=== PATIENT | female | born 1950 | race Caucasian/White ===

== ENCOUNTER 2021-12-07 02:12 | Inpatient (IN) | payer MEDICARE, MEDICAID ==
[~2021-12-07] VITALS: Ht 154.9 cm; Wt 64.5 kg
[~2021-12-07 02:12] MED LIST: BENZ1TAB96 PO; CEPH-558 PO; ENOX40SY14 SQ; LAMO100 PO; LEVO100 PO; METO100T14 PO; QUET100T PO; TIZA-330 PO; VENL-68 PO
[2021-12-07] MEDS ORDERED: LEVE500T9 PO (03:44)
[2021-12-07] MEDS ORDERED: VENL-193 PO (03:44)
[2021-12-07] MEDS ORDERED: MIRT-89 PO (03:44)
[2021-12-07] MEDS ORDERED: QUET25TA PO (03:44)
[2021-12-07] MEDS ORDERED: QUET200T PO (03:44)
[2021-12-07 04:26] LABS: BASOPHILS % (AUTO) 0.7 % (0.0-2.0); EOSINOPHILS % (AUTO) 1.3 % (1.0-6.0); HEMATOCRIT 36.3 % (36-46); HEMOGLOBIN 11.7 g/dL (12.0-16.0); LYMPHOCYTES # (AUTO) 1.3 K/uL (1.0-4.8); LYMPHOCYTES % (AUTO) 21.1 % (22.0-44.0); MEAN CORPUSCULAR HEMOGLOBIN 25.6 pg (26.0-34.0); MEAN CORPUSCULAR HGB CONC 32.3 G/dL (31.0-37.0); MEAN CORPUSCULAR VOLUME 79 fL (80-100); MONOCYTES # (AUTO) 0.5 K/uL (0.1-1.0); MONOCYTES % (AUTO) 8.1 % (2.0-9.0); NEUTROPHILS # (AUTO) 4.1 K/uL (1.8-7.7); NEUTROPHILS % (AUTO) 68.8 % (40.0-70.0); PLATELET COUNT (AUTO) 287 K/uL (150-450); RED BLOOD CELL COUNT(AUTO) 4.58 MIL/uL (4.00-5.20); RED CELL DISTRIBUTION WIDTH 15.5 % (11.5-14.5)
[2021-12-07 04:33] LABS: ANION GAP 3 mmol/L (8-16); CARBON DIOXIDE 31 mmol/L (22-29); CHLORIDE 98 mmol/L (98-107); GLUCOSE,RANDOM 97 mg/dL (70-110); POTASSIUM 4.4 mmol/L (3.5-5.1); SODIUM SERUM 132 mmol/L (136-145); UREA NITROGEN, BLOOD 14 mg/dL (7-18)
[2021-12-07 04:34] LABS: GLOMERULAR FILTR. RATE CALC > 60 mL/min (>60)
[2021-12-07 04:48] LABS: ALANINE AMINOTRANSFERASE 16 U/L (12-78); ALBUMIN 3.3 g/dL (3.4-5.0); ALKALINE PHOSPHATASE 118 U/L (46-116); ASPARTATE AMINOTRANSFERASE 19 U/L (15-37); BILIRUBIN,TOTAL 0.3 mg/dL (0.1-1.0); THYROID STIMULATING HORMONE 3.92 uIU/mL (0.36-3.74)
[2021-12-07 05:05] LABS: COVID AG,FIA SOURCE NASAL SWAB
[2021-12-07 05:09] LABS: APPEARANCE,URINE CLEAR (CLEAR); BILIRUBIN,URINE NEGATIVE (NEGATIVE); GLUCOSE, URINE (UA) NEGATIVE (NEGATIVE); KETONES,URINE NEGATIVE (NEGATIVE); LEUKOCYTE ESTERASE ,URINE MODERATE (NEGATIVE); NITRATE,URINE NEGATIVE (NEGATIVE); OCCULT BLOOD,URINE NEGATIVE (NEGATIVE); PROTEIN,URINE NEGATIVE (NEGATIVE); SPECIFIC GRAVITIY, URINE 1.006 (1.003-1.030); UROBILINOGEN,URINE <=1.0 mg/dL (<=1.0)
[2021-12-07 05:13] LABS: AMPHET/METH SCREEN,URINE NEGATIVE (NEGATIVE); BARBITURATE SCREEN, URINE NEGATIVE (NEGATIVE); BENZODIAZEPINES SCREEN,URINE NEGATIVE (NEGATIVE); CANNABINOID SCREEN,URINE NEGATIVE (NEGATIVE); COCAINE SCREEN,URINE NEGATIVE (NEGATIVE); METHADONE SCREEN, URINE NEGATIVE (NEGATIVE); OPIATE SCREEN,URINE NEGATIVE (NEGATIVE)
[2021-12-07 05:14] LABS: PHENCYCLIDINE SCREEN,URINE NEGATIVE (NEGATIVE)
[2021-12-07] MEDS ORDERED: ZOLPIDEM TARTRATE 10 MG TABLET PO PRN (05:15)
[2021-12-07] MEDS ORDERED: HALOPERIDOL 5 MG TABLET PO PRN (05:15)
[2021-12-07] MEDS ORDERED: LORazepam 2 MG TABLET PO PRN (05:15)
[2021-12-07 05:16] LABS: RBC,URINE None Seen /HPF (0-2)
[2021-12-07 05:17] LABS: BACTERIA,URINE None Seen /HPF (None Seen)
[2021-12-07] MEDS ORDERED: FERR325T27 PO (07:52)
[2021-12-07] MEDS ORDERED: CETI5TAB14 PO (07:52)
[2021-12-07] MEDS ORDERED: AMLO-258 PO (07:52)
[2021-12-07] MEDS ORDERED: BENZ1TAB96 PO (07:52)
[2021-12-07] MEDS ORDERED: ACET-2247 PO (07:52)
[2021-12-07] MEDS ORDERED: BISA10SU61 PR (07:52)
[2021-12-07] MEDS ORDERED: LAMO200T10 PO (08:07)
[2021-12-07] MEDS ORDERED: METO50 PO (08:07)
[2021-12-07] MEDS ORDERED: CHOL10002 PO (08:07)
[2021-12-07] MEDS ORDERED: MAGN-169 PO (08:07)
[2021-12-07] MEDS ORDERED: THIA100T80 PO (08:07)
[2021-12-07] MEDS ORDERED: PANT-31 PO (08:07)
[2021-12-07] MEDS ORDERED: LACTULOSE 20 GM/30 ML SOLUTION UDCUP PO PRN (12:00)
[2021-12-07 12:55] VITALS: BP 122/86
[2021-12-07] MEDS: VENLAFAXINE HCL 75 MG ER CAPSULE PO SCH (13:06)
[2021-12-07] MEDS ORDERED: PETROLATUM,WHITE 28 GM JELLY TP PRN (15:15)
[2021-12-07] MEDS ORDERED: CloNIDine HCL 0.1 MG TABLET PO PRN (15:15)
[2021-12-07] MEDS ORDERED: MAG HYDROX/AL HYDROX/SIMETH ES 30 ML SUSPENSION UDCUP PO PRN (15:15)
[2021-12-07] MEDS ORDERED: LOPERAMIDE HCL 2 MG CAPSULE PO PRN (15:15)
[2021-12-07] MEDS ORDERED: IBUPROFEN 400 MG TABLET PO PRN (15:15)
[2021-12-07] MEDS ORDERED: DOCUSATE SODIUM 100 MG CAPSULE PO PRN (15:15)
[2021-12-07] MEDS ORDERED: NICOTINE 14 MG/24 HOUR PATCH TD PRN (15:15)
[2021-12-07] MEDS ORDERED: MAGNESIUM HYDROXIDE SUSPENSION 30 ML UDCUP PO PRN (15:15)
[2021-12-07] MEDS ORDERED: ONDANSETRON HCL 4 MG TABLET PO PRN (15:15)
[2021-12-07] MEDS ORDERED: ACETAMINOPHEN 325 MG TABLET PO PRN (15:15)
[2021-12-07] MEDS ORDERED: GuaiFENesin/D-METHORPHAN [SUGAR-FREE] 200-20MG/10 ML SYRUP UDCUP PO PRN (15:15)
[2021-12-07] MEDS ORDERED: ALBUTEROL SULFATE HFA 90 MCG/PUFF 8 GM INHALER IH PRN (15:15)
[2021-12-07 16:10] VITALS: BP 119/84
[2021-12-07] MEDS: LITHIUM CARBONATE 300 MG ER TABLET PO SCH (17:10)
[2021-12-07] MEDS: LamoTRIgine 100 MG TABLET PO SCH (17:10)
[2021-12-07] MEDS: FAMOTIDINE 20 MG TABLET PO SCH (17:10)
[2021-12-07] MEDS: QUEtiapine FUMARATE 25 MG TABLET PO SCH (17:11)
[2021-12-07] MEDS: METOPROLOL TARTRATE 50 MG TABLET PO SCH (19:26)
[2021-12-07 19:30] VITALS: BP 144/65
[2021-12-07] MEDS: CETIRIZINE HCL 10 MG TABLET PO SCH (20:59)
[2021-12-07] MEDS: MIRTAZAPINE 15 MG TABLET PO SCH (20:59)
[2021-12-07] MEDS: QUEtiapine FUMARATE 200 MG TABLET PO SCH (21:00)
[2021-12-08] MEDS: LEVOTHYROXINE SODIUM 100 MCG TABLET PO SCH (06:39)
[2021-12-08 08:31] VITALS: BP 110/68
[2021-12-08] MEDS: VENLAFAXINE HCL 75 MG ER CAPSULE PO SCH (08:40)
[2021-12-08] MEDS: LITHIUM CARBONATE 300 MG ER TABLET PO SCH ×3 (08:40→18:00)
[2021-12-08] MEDS: METOPROLOL TARTRATE 50 MG TABLET PO SCH ×2 (08:40→17:00)
[2021-12-08] MEDS: QUEtiapine FUMARATE 25 MG TABLET PO SCH ×3 (08:41→18:00)
[2021-12-08] MEDS: FAMOTIDINE 20 MG TABLET PO SCH ×3 (08:41→18:00)
[2021-12-08] MEDS: LamoTRIgine 100 MG TABLET PO SCH ×3 (08:41→18:00)
[2021-12-08] MEDS: POLYETHYLENE GLYCOL 3350 17 GM PACKET PO SCH (08:41)
[2021-12-08] MEDS: DOCUSATE SODIUM 100 MG CAPSULE PO SCH (08:41)
[2021-12-08] MEDS ORDERED: GuaiFENesin/D-METHORPHAN [SUGAR-FREE] 200-20MG/10 ML SYRUP UDCUP PO PRN (09:45)
[2021-12-08] MEDS ORDERED: ACETAMINOPHEN 325 MG TABLET PO PRN (09:45)
[2021-12-08] MEDS ORDERED: LOPERAMIDE HCL 2 MG CAPSULE PO PRN (09:45)
[2021-12-08] MEDS ORDERED: DOCUSATE SODIUM 100 MG CAPSULE PO PRN (09:45)
[2021-12-08] MEDS ORDERED: CloNIDine HCL 0.1 MG TABLET PO PRN (09:45)
[2021-12-08] MEDS ORDERED: IBUPROFEN 400 MG TABLET PO PRN (09:45)
[2021-12-08] MEDS ORDERED: ONDANSETRON HCL 4 MG TABLET PO PRN (09:45)
[2021-12-08] MEDS ORDERED: MAGNESIUM HYDROXIDE SUSPENSION 30 ML UDCUP PO PRN (09:45)
[2021-12-08] MEDS ORDERED: MAG HYDROX/AL HYDROX/SIMETH ES 30 ML SUSPENSION UDCUP PO PRN (09:45)
[2021-12-08] MEDS ORDERED: NICOTINE 14 MG/24 HOUR PATCH TD PRN (09:45)
[2021-12-08] MEDS ORDERED: PETROLATUM,WHITE 28 GM JELLY TP PRN (09:45)
[2021-12-08] MEDS ORDERED: ALBUTEROL SULFATE HFA 90 MCG/PUFF 8 GM INHALER IH PRN (09:45)
[2021-12-08 17:45] VITALS: BP 120/55
[2021-12-08] MEDS: CETIRIZINE HCL 10 MG TABLET PO SCH ×3 (20:38→22:09)
[2021-12-08] MEDS: QUEtiapine FUMARATE 200 MG TABLET PO SCH ×3 (20:38→22:09)
[2021-12-08] MEDS: MIRTAZAPINE 15 MG TABLET PO SCH ×3 (20:38→22:09)
[2021-12-09] MEDS: LEVOTHYROXINE SODIUM 100 MCG TABLET PO SCH (06:46)
[2021-12-09] MEDS: LamoTRIgine 100 MG TABLET PO SCH ×2 (08:24→16:25)
[2021-12-09] MEDS: POLYETHYLENE GLYCOL 3350 17 GM PACKET PO SCH (08:24)
[2021-12-09] MEDS: FAMOTIDINE 20 MG TABLET PO SCH ×2 (08:25→16:25)
[2021-12-09] MEDS: METOPROLOL TARTRATE 50 MG TABLET PO SCH ×2 (08:25→17:29)
[2021-12-09] MEDS: DOCUSATE SODIUM 100 MG CAPSULE PO SCH (08:25)
[2021-12-09] MEDS: LITHIUM CARBONATE 300 MG ER TABLET PO SCH ×2 (08:25→17:28)
[2021-12-09] MEDS: QUEtiapine FUMARATE 25 MG TABLET PO SCH ×2 (08:26→16:25)
[2021-12-09] MEDS: VENLAFAXINE HCL 75 MG ER CAPSULE PO SCH (08:26)
[2021-12-09 09:05] VITALS: BP 138/71
[2021-12-09 16:16] VITALS: BP 123/82
[2021-12-09] MEDS: CETIRIZINE HCL 10 MG TABLET PO SCH (20:04)
[2021-12-09] MEDS: QUEtiapine FUMARATE 200 MG TABLET PO SCH (20:04)
[2021-12-09] MEDS: MIRTAZAPINE 15 MG TABLET PO SCH (20:04)
[2021-12-10] MEDS: LEVOTHYROXINE SODIUM 100 MCG TABLET PO SCH (06:38)
[2021-12-10] MEDS: POLYETHYLENE GLYCOL 3350 17 GM PACKET PO SCH (08:02)
[2021-12-10] MEDS: LITHIUM CARBONATE 300 MG ER TABLET PO SCH ×2 (08:03→16:36)
[2021-12-10] MEDS: VENLAFAXINE HCL 75 MG ER CAPSULE PO SCH (08:03)
[2021-12-10] MEDS: LamoTRIgine 100 MG TABLET PO SCH ×2 (08:03→16:36)
[2021-12-10] MEDS: METOPROLOL TARTRATE 50 MG TABLET PO SCH ×2 (08:03→16:37)
[2021-12-10] MEDS: QUEtiapine FUMARATE 25 MG TABLET PO SCH ×2 (08:04→16:37)
[2021-12-10] MEDS: DOCUSATE SODIUM 100 MG CAPSULE PO SCH (08:04)
[2021-12-10] MEDS: FAMOTIDINE 20 MG TABLET PO SCH ×2 (08:04→16:37)
[2021-12-10 09:10] VITALS: BP 157/69
[2021-12-10 16:01] VITALS: BP 121/84
[2021-12-10] MEDS: MUPIROCIN CALCIUM 2% 22 GM OINTMENT NASAL SCH (16:43)
[2021-12-10] MEDS: QUEtiapine FUMARATE 200 MG TABLET PO SCH (20:33)
[2021-12-10] MEDS: MIRTAZAPINE 15 MG TABLET PO SCH (20:34)
[2021-12-10] MEDS: CETIRIZINE HCL 10 MG TABLET PO SCH (20:35)
[2021-12-11] MEDS: LEVOTHYROXINE SODIUM 100 MCG TABLET PO SCH (06:49)
[2021-12-11] MEDS: QUEtiapine FUMARATE 25 MG TABLET PO SCH ×2 (08:45→16:33)
[2021-12-11] MEDS: POLYETHYLENE GLYCOL 3350 17 GM PACKET PO SCH (08:46)
[2021-12-11] MEDS: DOCUSATE SODIUM 100 MG CAPSULE PO SCH (08:46)
[2021-12-11] MEDS: METOPROLOL TARTRATE 50 MG TABLET PO SCH ×2 (08:47→16:33)
[2021-12-11] MEDS: LITHIUM CARBONATE 300 MG ER TABLET PO SCH ×2 (08:47→16:32)
[2021-12-11] MEDS: MUPIROCIN CALCIUM 2% 22 GM OINTMENT NASAL SCH ×2 (08:48→16:32)
[2021-12-11] MEDS: LamoTRIgine 100 MG TABLET PO SCH ×2 (08:48→16:32)
[2021-12-11] MEDS: VENLAFAXINE HCL 75 MG ER CAPSULE PO SCH (08:48)
[2021-12-11] MEDS: FAMOTIDINE 20 MG TABLET PO SCH ×2 (08:49→16:33)
[2021-12-11 09:00] VITALS: BP 111/66
[2021-12-11 16:00] VITALS: BP 133/76
[2021-12-11] MEDS: CETIRIZINE HCL 10 MG TABLET PO SCH (21:15)
[2021-12-11] MEDS: MIRTAZAPINE 15 MG TABLET PO SCH (21:15)
[2021-12-11] MEDS: QUEtiapine FUMARATE 200 MG TABLET PO SCH (21:15)
[2021-12-12] MEDS: LEVOTHYROXINE SODIUM 100 MCG TABLET PO SCH (06:41)
[2021-12-12] MEDS: MUPIROCIN CALCIUM 2% 22 GM OINTMENT NASAL SCH ×2 (08:21→17:06)
[2021-12-12] MEDS: DOCUSATE SODIUM 100 MG CAPSULE PO SCH (08:21)
[2021-12-12] MEDS: POLYETHYLENE GLYCOL 3350 17 GM PACKET PO SCH (08:21)
[2021-12-12] MEDS: QUEtiapine FUMARATE 25 MG TABLET PO SCH ×2 (08:21→17:02)
[2021-12-12] MEDS: VENLAFAXINE HCL 75 MG ER CAPSULE PO SCH (08:22)
[2021-12-12] MEDS: LamoTRIgine 100 MG TABLET PO SCH ×2 (08:22→17:02)
[2021-12-12] MEDS: METOPROLOL TARTRATE 50 MG TABLET PO SCH ×2 (08:22→17:33)
[2021-12-12] MEDS: LITHIUM CARBONATE 300 MG ER TABLET PO SCH (08:22)
[2021-12-12] MEDS: FAMOTIDINE 20 MG TABLET PO SCH ×2 (08:23→17:02)
[2021-12-12 09:16] VITALS: BP 127/55
[2021-12-12] MEDS ORDERED: LITH300CRT PO ×2 (15:50)
[2021-12-12 16:00] VITALS: BP 145/76
[2021-12-12] MEDS ORDERED: DOCU-119 PO (16:51)
[2021-12-12] MEDS ORDERED: POLY17PO47 PO (16:53)
[2021-12-12] MEDS ORDERED: METO50 PO (16:54)
[2021-12-12] MEDS ORDERED: FAMO20 PO (16:54)
[2021-12-12] MEDS ORDERED: CETI-450 PO (16:55)
[2021-12-12] MEDS ORDERED: MUPI1OIN5 TP (17:01)
[2021-12-12] MEDS ORDERED: LITHIUM CARBONATE 300 MG CAPSULE PO SCH (21:00)
[2021-12-13] MEDS ORDERED: LITHIUM CARBONATE 300 MG ER TABLET PO SCH (09:00)
== END 2021-12-12 18:15 | DRG 885 ==
LOC: EMS 02:12 → 3EX 07:20
PROVIDERS: ADMIT Psychiatry & Neurology Child & Adolescent Psychiatry; ATTEND Psychiatry & Neurology Child & Adolescent Psychiatry
DX: F20.0 Paranoid schizophrenia (principal); E87.1 Hypo-osmolality and hyponatremia; D64.9 Anemia, unspecified; E03.9 Hypothyroidism, unspecified; E55.9 Vitamin D deficiency, unspecified; F41.9 Anxiety disorder, unspecified; F03.90 Unspecified dementia, unspecified severity, without behavioral disturbance, psychotic disturbance, mood disturbance, and anxiety; J45.909 Unspecified asthma, uncomplicated; G40.909 Epilepsy, unspecified, not intractable, without status epilepticus; G89.29 Other chronic pain; Z20.822 Contact with and (suspected) exposure to COVID-19; I10 Essential (primary) hypertension; Z91.011 Allergy to milk products; Z59.00 Homelessness unspecified; Z88.8 Allergy status to other drugs, medicaments and biological substances; Z91.041 Radiographic dye allergy status
CPT/HCPCS: 80053; 80178; 81001; 82140; 82607; 84443; 85025; 87081; 87086; 99285; G0378; G0480

== ENCOUNTER 2021-12-12 19:09 | Inpatient (IN) | payer MEDICARE, MEDICAID ==
[~2021-12-12] VITALS: Ht 154.9 cm; Wt 66.7 kg
[~2021-12-12 19:09] MED LIST changes: +ACET-2247 PO; +AMLO-258 PO; +BISA10SU61 PR; +CETI-450 PO; +CETI5TAB14 PO; +CHOL10002 PO; +DOCU-119 PO; +FAMO20 PO; +FERR325T27 PO; -LAMO100 PO; +LAMO200T10 PO; +LEVE500T9 PO; +LITH300CRT PO; +MAGN-169 PO; -METO100T14 PO; +METO50 PO; +MIRT-89 PO; +MUPI1OIN5 TP; +PANT-31 PO; +POLY17PO47 PO; -QUET100T PO; +QUET200T PO; +QUET25TA PO; +THIA100T80 PO; -TIZA-330 PO; +VENL-193 PO; -VENL-68 PO
[2021-12-12] MEDS ORDERED: HALOPERIDOL 5 MG TABLET PO ONE (22:30)
[2021-12-12] MEDS ORDERED: LORazepam 2 MG TABLET PO ONE (22:30)
[2021-12-13 00:21] LABS: BASOPHILS % (AUTO) 0.8 % (0.0-2.0); EOSINOPHILS % (AUTO) 1.8 % (1.0-6.0); HEMATOCRIT 35.7 % (36-46); HEMOGLOBIN 11.7 g/dL (12.0-16.0); LYMPHOCYTES # (AUTO) 1.3 K/uL (1.0-4.8); LYMPHOCYTES % (AUTO) 20.6 % (22.0-44.0); MEAN CORPUSCULAR HEMOGLOBIN 25.9 pg (26.0-34.0); MEAN CORPUSCULAR HGB CONC 32.7 G/dL (31.0-37.0); MEAN CORPUSCULAR VOLUME 79 fL (80-100); MONOCYTES # (AUTO) 0.5 K/uL (0.1-1.0); MONOCYTES % (AUTO) 8.1 % (2.0-9.0); NEUTROPHILS # (AUTO) 4.4 K/uL (1.8-7.7); NEUTROPHILS % (AUTO) 68.7 % (40.0-70.0); PLATELET COUNT (AUTO) 254 K/uL (150-450); RED BLOOD CELL COUNT(AUTO) 4.51 MIL/uL (4.00-5.20); RED CELL DISTRIBUTION WIDTH 15.4 % (11.5-14.5)
[2021-12-13 00:30] LABS: ANION GAP 5 mmol/L (8-16); CALCIUM, TOTAL 9.1 mg/dL (8.8-10.5); CARBON DIOXIDE 25 mmol/L (22-29); CHLORIDE 103 mmol/L (98-107); CREATININE 0.88 mg/dL (0.60-1.30); GLUCOSE,RANDOM 86 mg/dL (70-110); POTASSIUM 4.2 mmol/L (3.5-5.1); SODIUM SERUM 133 mmol/L (136-145); UREA NITROGEN, BLOOD 20 mg/dL (7-18)
[2021-12-13 00:31] LABS: GLOMERULAR FILTR. RATE CALC > 60 mL/min (>60)
[2021-12-13 00:35] LABS: ALANINE AMINOTRANSFERASE 11 U/L (12-78); ALKALINE PHOSPHATASE 110 U/L (46-116); ASPARTATE AMINOTRANSFERASE 15 U/L (15-37); BILIRUBIN,TOTAL 0.3 mg/dL (0.1-1.0); TOTAL PROTEIN, SERUM 6.7 g/dL (6.4-8.2)
[2021-12-13 14:29] LABS: COVID AG,FIA SOURCE NASOPHARYNGEAL
[2021-12-13] MEDS ORDERED: ZOLPIDEM TARTRATE 10 MG TABLET PO PRN (20:00)
[2021-12-13 21:30] VITALS: BP 158/87
[2021-12-13] MEDS: QUEtiapine FUMARATE 200 MG TABLET PO SCH (22:02)
[2021-12-13] MEDS: MIRTAZAPINE 15 MG TABLET PO SCH (22:02)
[2021-12-13] MEDS: LITHIUM CARBONATE 300 MG CAPSULE PO SCH (22:02)
[2021-12-13] MEDS: LamoTRIgine 100 MG TABLET PO SCH (22:03)
[2021-12-14] MEDS ORDERED: MAG HYDROX/AL HYDROX/SIMETH ES 30 ML SUSPENSION UDCUP PO PRN (06:30)
[2021-12-14] MEDS ORDERED: ALBUTEROL SULFATE HFA 90 MCG/PUFF 8 GM INHALER IH PRN (06:30)
[2021-12-14] MEDS ORDERED: MAGNESIUM HYDROXIDE SUSPENSION 30 ML UDCUP PO PRN (06:30)
[2021-12-14] MEDS ORDERED: DOCUSATE SODIUM 100 MG CAPSULE PO PRN (06:30)
[2021-12-14] MEDS ORDERED: PETROLATUM,WHITE 28 GM JELLY TP PRN (06:30)
[2021-12-14] MEDS ORDERED: GuaiFENesin/D-METHORPHAN [SUGAR-FREE] 200-20MG/10 ML SYRUP UDCUP PO PRN (06:30)
[2021-12-14] MEDS ORDERED: NICOTINE 14 MG/24 HOUR PATCH TD PRN (06:30)
[2021-12-14] MEDS: LEVOTHYROXINE SODIUM 100 MCG TABLET PO SCH (06:46)
[2021-12-14] MEDS ORDERED: LEVOTHYROXINE SODIUM 100 MCG TABLET PO SCH (07:00)
[2021-12-14] MEDS: METOPROLOL TARTRATE 50 MG TABLET PO SCH ×2 (08:24→17:06)
[2021-12-14] MEDS: FAMOTIDINE 20 MG TABLET PO SCH ×2 (08:25→16:44)
[2021-12-14] MEDS: VENLAFAXINE HCL 75 MG ER CAPSULE PO SCH (08:25)
[2021-12-14] MEDS: LITHIUM CARBONATE 600 MG CAPSULE PO SCH (08:25)
[2021-12-14] MEDS: DOCUSATE SODIUM 100 MG CAPSULE PO SCH (08:25)
[2021-12-14] MEDS: LamoTRIgine 100 MG TABLET PO SCH ×2 (08:26→16:42)
[2021-12-14] MEDS: QUEtiapine FUMARATE 25 MG TABLET PO SCH ×2 (08:28→16:42)
[2021-12-14] MEDS ORDERED: FAMOTIDINE 20 MG TABLET PO SCH (09:00)
[2021-12-14] MEDS ORDERED: METOPROLOL TARTRATE 50 MG TABLET PO SCH (09:00)
[2021-12-14] MEDS: POLYETHYLENE GLYCOL 3350 17 GM PACKET PO SCH (09:00)
[2021-12-14 09:56] VITALS: BP 127/60
[2021-12-14 16:44] VITALS: BP 138/78
[2021-12-14] MEDS: LITHIUM CARBONATE 300 MG CAPSULE PO SCH (20:19)
[2021-12-14] MEDS: MIRTAZAPINE 15 MG TABLET PO SCH (20:20)
[2021-12-14] MEDS: CETIRIZINE HCL 10 MG TABLET PO SCH (20:20)
[2021-12-14] MEDS: QUEtiapine FUMARATE 200 MG TABLET PO SCH (20:20)
[2021-12-14] MEDS ORDERED: CETIRIZINE HCL 10 MG TABLET PO SCH (21:00)
[2021-12-15] MEDS: LEVOTHYROXINE SODIUM 100 MCG TABLET PO SCH (06:22)
[2021-12-15 08:24] VITALS: BP 97/53
[2021-12-15] MEDS: POLYETHYLENE GLYCOL 3350 17 GM PACKET PO SCH (08:31)
[2021-12-15] MEDS: METOPROLOL TARTRATE 50 MG TABLET PO SCH ×2 (08:31→16:59)
[2021-12-15] MEDS: VENLAFAXINE HCL 75 MG ER CAPSULE PO SCH (08:31)
[2021-12-15] MEDS: LITHIUM CARBONATE 600 MG CAPSULE PO SCH (08:31)
[2021-12-15] MEDS: DOCUSATE SODIUM 100 MG CAPSULE PO SCH (08:32)
[2021-12-15] MEDS: QUEtiapine FUMARATE 25 MG TABLET PO SCH ×2 (08:32→16:41)
[2021-12-15] MEDS: LamoTRIgine 100 MG TABLET PO SCH ×2 (08:32→16:41)
[2021-12-15] MEDS: FAMOTIDINE 20 MG TABLET PO SCH ×2 (08:38→16:41)
[2021-12-15 16:10] VITALS: BP 95/42
[2021-12-15] MEDS: QUEtiapine FUMARATE 200 MG TABLET PO SCH (21:00)
[2021-12-15] MEDS: LITHIUM CARBONATE 300 MG CAPSULE PO SCH (21:00)
[2021-12-15] MEDS: CETIRIZINE HCL 10 MG TABLET PO SCH (21:00)
[2021-12-15] MEDS: MIRTAZAPINE 15 MG TABLET PO SCH (21:00)
[2021-12-15 21:59] LABS: BASOPHILS % (AUTO) 0.6 % (0.0-2.0); EOSINOPHILS % (AUTO) 2.5 % (1.0-6.0); HEMATOCRIT 38.2 % (36-46); HEMOGLOBIN 12.4 g/dL (12.0-16.0); LYMPHOCYTES # (AUTO) 1.4 K/uL (1.0-4.8); LYMPHOCYTES % (AUTO) 22.6 % (22.0-44.0); MEAN CORPUSCULAR HEMOGLOBIN 25.8 pg (26.0-34.0); MEAN CORPUSCULAR HGB CONC 32.5 G/dL (31.0-37.0); MEAN CORPUSCULAR VOLUME 79 fL (80-100); MONOCYTES # (AUTO) 0.5 K/uL (0.1-1.0); MONOCYTES % (AUTO) 7.7 % (2.0-9.0); NEUTROPHILS # (AUTO) 4.1 K/uL (1.8-7.7); NEUTROPHILS % (AUTO) 66.6 % (40.0-70.0); PLATELET COUNT (AUTO) 263 K/uL (150-450); RED BLOOD CELL COUNT(AUTO) 4.81 MIL/uL (4.00-5.20); RED CELL DISTRIBUTION WIDTH 15.9 % (11.5-14.5)
[2021-12-15 22:09] LABS: CALCIUM, TOTAL 9.2 mg/dL (8.8-10.5); CREATININE 1.26 mg/dL (0.60-1.30); POTASSIUM 4.2 mmol/L (3.5-5.1)
[2021-12-16 05:07] VITALS: BP 147/76
[2021-12-16] MEDS: LEVOTHYROXINE SODIUM 100 MCG TABLET PO SCH (06:43)
[2021-12-16] MEDS: QUEtiapine FUMARATE 25 MG TABLET PO SCH ×3 (09:00→17:52)
[2021-12-16] MEDS: LamoTRIgine 100 MG TABLET PO SCH ×3 (09:00→17:52)
[2021-12-16] MEDS: METOPROLOL TARTRATE 50 MG TABLET PO SCH ×3 (09:00→17:51)
[2021-12-16] MEDS: FAMOTIDINE 20 MG TABLET PO SCH ×3 (09:00→17:51)
[2021-12-16] MEDS: POLYETHYLENE GLYCOL 3350 17 GM PACKET PO SCH (10:16)
[2021-12-16] MEDS: DOCUSATE SODIUM 100 MG CAPSULE PO SCH (10:16)
[2021-12-16] MEDS: VENLAFAXINE HCL 75 MG ER CAPSULE PO SCH (10:17)
[2021-12-16 16:40] VITALS: BP 140/70
[2021-12-16] MEDS: QUEtiapine FUMARATE 200 MG TABLET PO SCH (21:00)
[2021-12-16] MEDS: CETIRIZINE HCL 10 MG TABLET PO SCH (21:00)
[2021-12-16] MEDS: MIRTAZAPINE 15 MG TABLET PO SCH (21:00)
[2021-12-17] MEDS: LEVOTHYROXINE SODIUM 100 MCG TABLET PO SCH (06:35)
[2021-12-17 06:37] VITALS: BP 133/77
[2021-12-17] MEDS: QUEtiapine FUMARATE 25 MG TABLET PO SCH ×2 (08:18→16:36)
[2021-12-17] MEDS: VENLAFAXINE HCL 75 MG ER CAPSULE PO SCH (08:19)
[2021-12-17] MEDS: POLYETHYLENE GLYCOL 3350 17 GM PACKET PO SCH (08:19)
[2021-12-17] MEDS: DOCUSATE SODIUM 100 MG CAPSULE PO SCH (08:19)
[2021-12-17] MEDS: FAMOTIDINE 20 MG TABLET PO SCH ×2 (08:19→16:36)
[2021-12-17] MEDS: METOPROLOL TARTRATE 50 MG TABLET PO SCH ×2 (08:19→16:36)
[2021-12-17] MEDS: LamoTRIgine 100 MG TABLET PO SCH ×2 (08:20→16:36)
[2021-12-17 09:01] VITALS: BP 140/67
[2021-12-17 16:50] VITALS: BP 185/90
[2021-12-17 18:41] VITALS: BP 153/73
[2021-12-17] MEDS: MIRTAZAPINE 15 MG TABLET PO SCH (20:40)
[2021-12-17] MEDS: QUEtiapine FUMARATE 200 MG TABLET PO SCH (20:40)
[2021-12-17] MEDS: CETIRIZINE HCL 10 MG TABLET PO SCH (20:40)
[2021-12-18] MEDS: LEVOTHYROXINE SODIUM 100 MCG TABLET PO SCH (06:42)
[2021-12-18] MEDS: VENLAFAXINE HCL 75 MG ER CAPSULE PO SCH (08:27)
[2021-12-18 08:30] VITALS: BP 102/56
[2021-12-18] MEDS: DOCUSATE SODIUM 100 MG CAPSULE PO SCH (08:33)
[2021-12-18] MEDS: POLYETHYLENE GLYCOL 3350 17 GM PACKET PO SCH (08:34)
[2021-12-18] MEDS: METOPROLOL TARTRATE 50 MG TABLET PO SCH ×3 (08:34→17:00)
[2021-12-18] MEDS: LamoTRIgine 100 MG TABLET PO SCH ×2 (08:34→17:00)
[2021-12-18] MEDS: FAMOTIDINE 20 MG TABLET PO SCH ×2 (08:34→17:00)
[2021-12-18] MEDS: QUEtiapine FUMARATE 25 MG TABLET PO SCH ×2 (08:34→17:00)
[2021-12-18 16:24] VITALS: BP 119/52
[2021-12-18] MEDS: CETIRIZINE HCL 10 MG TABLET PO SCH (20:44)
[2021-12-18] MEDS: QUEtiapine FUMARATE 200 MG TABLET PO SCH (20:44)
[2021-12-18] MEDS: MIRTAZAPINE 15 MG TABLET PO SCH (20:44)
[2021-12-19] MEDS: LEVOTHYROXINE SODIUM 100 MCG TABLET PO SCH (06:40)
[2021-12-19 07:45] LABS: COVID AG,FIA SOURCE NASAL SWAB
[2021-12-19 08:00] VITALS: BP 98/59
[2021-12-19] MEDS: POLYETHYLENE GLYCOL 3350 17 GM PACKET PO SCH (09:00)
[2021-12-19] MEDS: LamoTRIgine 100 MG TABLET PO SCH ×2 (09:45→16:54)
[2021-12-19] MEDS: VENLAFAXINE HCL 75 MG ER CAPSULE PO SCH (09:45)
[2021-12-19] MEDS: QUEtiapine FUMARATE 25 MG TABLET PO SCH ×2 (09:45→16:54)
[2021-12-19] MEDS: DOCUSATE SODIUM 100 MG CAPSULE PO SCH (09:45)
[2021-12-19] MEDS: METOPROLOL TARTRATE 50 MG TABLET PO SCH ×2 (09:45→16:53)
[2021-12-19] MEDS: FAMOTIDINE 20 MG TABLET PO SCH ×2 (09:46→16:53)
[2021-12-19] MEDS: LORazepam 2 MG TABLET PO PRN (09:54)
[2021-12-19 11:59] LABS: APPEARANCE,URINE HAZY (CLEAR); BILIRUBIN,URINE NEGATIVE (NEGATIVE); GLUCOSE, URINE (UA) NEGATIVE (NEGATIVE); KETONES,URINE NEGATIVE (NEGATIVE); LEUKOCYTE ESTERASE ,URINE LARGE (NEGATIVE); NITRATE,URINE NEGATIVE (NEGATIVE); OCCULT BLOOD,URINE TRACE (NEGATIVE); PH,URINE 6.5 (5.0-8.0); PROTEIN,URINE TRACE mg/dL (NEGATIVE); SPECIFIC GRAVITIY, URINE 1.011 (1.003-1.030); UROBILINOGEN,URINE <=1.0 mg/dL (<=1.0)
[2021-12-19 12:10] LABS: AMPHET/METH SCREEN,URINE NEGATIVE (NEGATIVE); BARBITURATE SCREEN, URINE NEGATIVE (NEGATIVE); BENZODIAZEPINES SCREEN,URINE NEGATIVE (NEGATIVE); CANNABINOID SCREEN,URINE NEGATIVE (NEGATIVE); COCAINE SCREEN,URINE NEGATIVE (NEGATIVE); METHADONE SCREEN, URINE NEGATIVE (NEGATIVE); OPIATE SCREEN,URINE NEGATIVE (NEGATIVE)
[2021-12-19 12:11] LABS: PHENCYCLIDINE SCREEN,URINE NEGATIVE (NEGATIVE)
[2021-12-19 12:34] LABS: RBC,URINE None Seen /HPF (0-2)
[2021-12-19 12:35] LABS: BACTERIA,URINE Few /HPF (None Seen)
[2021-12-19 12:36] LABS: SQUAMOUS EPITHELIAL CELL,UR Rare /LPF (None Seen)
[2021-12-19 12:37] LABS: WBC,URINE >100 /HPF (0-5)
[2021-12-19 16:52] VITALS: BP 122/64
[2021-12-19] MEDS: MIRTAZAPINE 15 MG TABLET PO SCH (20:48)
[2021-12-19] MEDS: QUEtiapine FUMARATE 200 MG TABLET PO SCH (20:48)
[2021-12-19] MEDS: CETIRIZINE HCL 10 MG TABLET PO SCH (20:48)
[2021-12-20] MEDS: LEVOTHYROXINE SODIUM 100 MCG TABLET PO SCH (06:33)
[2021-12-20 08:00] VITALS: BP 128/55
[2021-12-20] MEDS: VENLAFAXINE HCL 75 MG ER CAPSULE PO SCH (09:36)
[2021-12-20] MEDS: DOCUSATE SODIUM 100 MG CAPSULE PO SCH (09:36)
[2021-12-20] MEDS: METOPROLOL TARTRATE 50 MG TABLET PO SCH ×2 (09:37→16:53)
[2021-12-20] MEDS: POLYETHYLENE GLYCOL 3350 17 GM PACKET PO SCH (09:37)
[2021-12-20] MEDS: FAMOTIDINE 20 MG TABLET PO SCH ×2 (09:37→16:53)
[2021-12-20] MEDS: LamoTRIgine 100 MG TABLET PO SCH ×2 (09:37→16:54)
[2021-12-20] MEDS: QUEtiapine FUMARATE 25 MG TABLET PO SCH ×2 (09:37→16:54)
[2021-12-20] MEDS: IBUPROFEN 400 MG TABLET PO PRN (11:48)
[2021-12-20] MEDS: LORazepam 2 MG TABLET PO PRN (11:48)
[2021-12-20 11:49] VITALS: BP 119/60
[2021-12-20 12:49] VITALS: BP 124/66
[2021-12-20 16:02] VITALS: BP 130/80
[2021-12-20] MEDS: CETIRIZINE HCL 10 MG TABLET PO SCH (21:19)
[2021-12-20] MEDS: MIRTAZAPINE 15 MG TABLET PO SCH (21:19)
[2021-12-20] MEDS: QUEtiapine FUMARATE 200 MG TABLET PO SCH (21:19)
[2021-12-21] MEDS: LEVOTHYROXINE SODIUM 100 MCG TABLET PO SCH ×2 (06:39→07:00)
[2021-12-21] MEDS: CEPHALEXIN MONOHYDRATE 500 MG CAPSULE PO SCH ×3 (09:19→17:18)
[2021-12-21] MEDS: LamoTRIgine 100 MG TABLET PO SCH ×2 (09:19→17:46)
[2021-12-21] MEDS: FAMOTIDINE 20 MG TABLET PO SCH ×2 (09:19→17:18)
[2021-12-21] MEDS: QUEtiapine FUMARATE 25 MG TABLET PO SCH ×2 (09:19→17:18)
[2021-12-21] MEDS: DOCUSATE SODIUM 100 MG CAPSULE PO SCH (09:20)
[2021-12-21] MEDS: POLYETHYLENE GLYCOL 3350 17 GM PACKET PO SCH (09:20)
[2021-12-21] MEDS: METOPROLOL TARTRATE 50 MG TABLET PO SCH ×2 (09:20→17:46)
[2021-12-21] MEDS: VENLAFAXINE HCL 75 MG ER CAPSULE PO SCH (09:20)
[2021-12-21 09:45] VITALS: BP 115/70
[2021-12-21 16:09] VITALS: BP 119/65
[2021-12-21] MEDS: CETIRIZINE HCL 10 MG TABLET PO SCH (21:16)
[2021-12-21] MEDS: MIRTAZAPINE 15 MG TABLET PO SCH (21:16)
[2021-12-21] MEDS: QUEtiapine FUMARATE 200 MG TABLET PO SCH (21:16)
[2021-12-22 01:22] VITALS: BP 120/58
[2021-12-22] MEDS: LORazepam 2 MG TABLET PO PRN (01:40)
[2021-12-22] MEDS: LEVOTHYROXINE SODIUM 100 MCG TABLET PO SCH (06:51)
[2021-12-22 08:00] VITALS: BP 128/67
[2021-12-22] MEDS: FAMOTIDINE 20 MG TABLET PO SCH ×2 (09:21→16:41)
[2021-12-22] MEDS: CEPHALEXIN MONOHYDRATE 500 MG CAPSULE PO SCH ×3 (09:22→16:40)
[2021-12-22] MEDS: METOPROLOL TARTRATE 50 MG TABLET PO SCH ×2 (09:22→16:41)
[2021-12-22] MEDS: VENLAFAXINE HCL 75 MG ER CAPSULE PO SCH (09:22)
[2021-12-22] MEDS: DOCUSATE SODIUM 100 MG CAPSULE PO SCH (09:22)
[2021-12-22] MEDS: POLYETHYLENE GLYCOL 3350 17 GM PACKET PO SCH (09:23)
[2021-12-22] MEDS: QUEtiapine FUMARATE 25 MG TABLET PO SCH ×2 (09:23→16:41)
[2021-12-22] MEDS: LamoTRIgine 100 MG TABLET PO SCH ×2 (09:24→16:40)
[2021-12-22 16:07] VITALS: BP 131/84
[2021-12-22] MEDS: CETIRIZINE HCL 10 MG TABLET PO SCH (21:16)
[2021-12-22] MEDS: MIRTAZAPINE 15 MG TABLET PO SCH (21:16)
[2021-12-22] MEDS: QUEtiapine FUMARATE 200 MG TABLET PO SCH (21:17)
[2021-12-23] MEDS: LEVOTHYROXINE SODIUM 100 MCG TABLET PO SCH (06:31)
[2021-12-23] MEDS: FAMOTIDINE 20 MG TABLET PO SCH ×2 (08:26→16:54)
[2021-12-23] MEDS: POLYETHYLENE GLYCOL 3350 17 GM PACKET PO SCH (08:26)
[2021-12-23] MEDS: VENLAFAXINE HCL 75 MG ER CAPSULE PO SCH (08:26)
[2021-12-23] MEDS: METOPROLOL TARTRATE 50 MG TABLET PO SCH ×3 (08:26→17:47)
[2021-12-23] MEDS: CEPHALEXIN MONOHYDRATE 500 MG CAPSULE PO SCH ×3 (08:26→16:55)
[2021-12-23] MEDS: LamoTRIgine 100 MG TABLET PO SCH ×2 (08:27→16:54)
[2021-12-23] MEDS: QUEtiapine FUMARATE 25 MG TABLET PO SCH ×2 (08:27→16:56)
[2021-12-23] MEDS: DOCUSATE SODIUM 100 MG CAPSULE PO SCH (08:27)
[2021-12-23 16:24] VITALS: BP 123/75
[2021-12-23] MEDS: MIRTAZAPINE 15 MG TABLET PO SCH (20:39)
[2021-12-23] MEDS: QUEtiapine FUMARATE 200 MG TABLET PO SCH (20:40)
[2021-12-23] MEDS: CETIRIZINE HCL 10 MG TABLET PO SCH (20:40)
[2021-12-24] MEDS: LEVOTHYROXINE SODIUM 100 MCG TABLET PO SCH (07:06)
[2021-12-24 08:10] VITALS: BP 110/58
[2021-12-24] MEDS: POLYETHYLENE GLYCOL 3350 17 GM PACKET PO SCH (08:15)
[2021-12-24] MEDS: FAMOTIDINE 20 MG TABLET PO SCH ×2 (08:15→17:55)
[2021-12-24] MEDS: METOPROLOL TARTRATE 50 MG TABLET PO SCH ×2 (08:16→17:55)
[2021-12-24] MEDS: LamoTRIgine 100 MG TABLET PO SCH ×2 (08:16→17:56)
[2021-12-24] MEDS: CEPHALEXIN MONOHYDRATE 500 MG CAPSULE PO SCH ×3 (08:16→17:55)
[2021-12-24] MEDS: VENLAFAXINE HCL 75 MG ER CAPSULE PO SCH (08:16)
[2021-12-24] MEDS: DOCUSATE SODIUM 100 MG CAPSULE PO SCH (08:16)
[2021-12-24] MEDS: QUEtiapine FUMARATE 25 MG TABLET PO SCH ×2 (08:16→17:56)
[2021-12-24 16:05] VITALS: BP 118/66
[2021-12-24 20:00] VITALS: BP 143/53
[2021-12-24] MEDS: QUEtiapine FUMARATE 200 MG TABLET PO SCH (21:00)
[2021-12-24] MEDS: MIRTAZAPINE 15 MG TABLET PO SCH (21:00)
[2021-12-24] MEDS: CETIRIZINE HCL 10 MG TABLET PO SCH (21:00)
[2021-12-25] MEDS: LEVOTHYROXINE SODIUM 100 MCG TABLET PO SCH (06:51)
[2021-12-25 08:00] VITALS: BP 159/71
[2021-12-25] MEDS: VENLAFAXINE HCL 75 MG ER CAPSULE PO SCH (09:00)
[2021-12-25] MEDS: CEPHALEXIN MONOHYDRATE 500 MG CAPSULE PO SCH ×3 (09:00→17:02)
[2021-12-25] MEDS: DOCUSATE SODIUM 100 MG CAPSULE PO SCH (09:00)
[2021-12-25] MEDS: FAMOTIDINE 20 MG TABLET PO SCH ×2 (09:00→17:02)
[2021-12-25] MEDS: LamoTRIgine 100 MG TABLET PO SCH ×2 (09:00→17:02)
[2021-12-25] MEDS: METOPROLOL TARTRATE 50 MG TABLET PO SCH ×2 (09:01→17:02)
[2021-12-25] MEDS: POLYETHYLENE GLYCOL 3350 17 GM PACKET PO SCH (09:01)
[2021-12-25] MEDS: QUEtiapine FUMARATE 25 MG TABLET PO SCH ×2 (09:01→17:03)
[2021-12-25] MEDS: LORazepam 2 MG TABLET PO PRN (09:04)
[2021-12-25 16:31] VITALS: BP 136/67
[2021-12-25] MEDS: CETIRIZINE HCL 10 MG TABLET PO SCH (21:00)
[2021-12-25] MEDS: QUEtiapine FUMARATE 200 MG TABLET PO SCH (21:00)
[2021-12-25] MEDS: MIRTAZAPINE 15 MG TABLET PO SCH (21:00)
[2021-12-26] MEDS: LEVOTHYROXINE SODIUM 100 MCG TABLET PO SCH (06:37)
[2021-12-26] MEDS: LamoTRIgine 100 MG TABLET PO SCH ×2 (09:12→16:05)
[2021-12-26] MEDS: POLYETHYLENE GLYCOL 3350 17 GM PACKET PO SCH (09:13)
[2021-12-26] MEDS: VENLAFAXINE HCL 75 MG ER CAPSULE PO SCH (09:13)
[2021-12-26] MEDS: METOPROLOL TARTRATE 50 MG TABLET PO SCH ×2 (09:13→16:05)
[2021-12-26] MEDS: QUEtiapine FUMARATE 25 MG TABLET PO SCH ×2 (09:13→16:05)
[2021-12-26] MEDS: CEPHALEXIN MONOHYDRATE 500 MG CAPSULE PO SCH (09:13)
[2021-12-26] MEDS: DOCUSATE SODIUM 100 MG CAPSULE PO SCH (09:13)
[2021-12-26] MEDS: FAMOTIDINE 20 MG TABLET PO SCH ×2 (09:14→16:05)
[2021-12-26 09:25] VITALS: BP 125/59
[2021-12-26 16:00] VITALS: BP 132/64
[2021-12-26 16:02] LABS: COVID AG,FIA SOURCE NASAL SWAB
[2021-12-26] MEDS: QUEtiapine FUMARATE 200 MG TABLET PO SCH (20:18)
[2021-12-26] MEDS: CETIRIZINE HCL 10 MG TABLET PO SCH (20:18)
[2021-12-26] MEDS: MIRTAZAPINE 15 MG TABLET PO SCH (20:18)
[2021-12-27] MEDS: LEVOTHYROXINE SODIUM 100 MCG TABLET PO SCH (06:58)
[2021-12-27 08:51] VITALS: BP 109/58
[2021-12-27] MEDS: METOPROLOL TARTRATE 50 MG TABLET PO SCH ×2 (09:00→17:16)
[2021-12-27] MEDS: POLYETHYLENE GLYCOL 3350 17 GM PACKET PO SCH (09:55)
[2021-12-27] MEDS: FAMOTIDINE 20 MG TABLET PO SCH ×2 (09:55→17:16)
[2021-12-27] MEDS: VENLAFAXINE HCL 75 MG ER CAPSULE PO SCH (09:56)
[2021-12-27] MEDS: QUEtiapine FUMARATE 25 MG TABLET PO SCH ×2 (09:56→17:16)
[2021-12-27] MEDS: DOCUSATE SODIUM 100 MG CAPSULE PO SCH (09:56)
[2021-12-27] MEDS: LamoTRIgine 100 MG TABLET PO SCH ×2 (09:56→17:16)
[2021-12-27 16:41] VITALS: BP 119/63
[2021-12-27] MEDS: QUEtiapine FUMARATE 200 MG TABLET PO SCH (20:12)
[2021-12-27] MEDS: MIRTAZAPINE 15 MG TABLET PO SCH (20:12)
[2021-12-27] MEDS: CETIRIZINE HCL 10 MG TABLET PO SCH (20:13)
[2021-12-28] MEDS: LEVOTHYROXINE SODIUM 100 MCG TABLET PO SCH (06:53)
[2021-12-28 08:24] VITALS: BP 111/59
[2021-12-28] MEDS: METOPROLOL TARTRATE 50 MG TABLET PO SCH ×2 (09:00→17:19)
[2021-12-28] MEDS: DOCUSATE SODIUM 100 MG CAPSULE PO SCH (09:24)
[2021-12-28] MEDS: POLYETHYLENE GLYCOL 3350 17 GM PACKET PO SCH (09:25)
[2021-12-28] MEDS: LamoTRIgine 100 MG TABLET PO SCH ×2 (09:25→17:18)
[2021-12-28] MEDS: VENLAFAXINE HCL 75 MG ER CAPSULE PO SCH (09:25)
[2021-12-28] MEDS: QUEtiapine FUMARATE 25 MG TABLET PO SCH ×2 (09:25→17:20)
[2021-12-28] MEDS: FAMOTIDINE 20 MG TABLET PO SCH ×2 (09:25→17:20)
[2021-12-28 16:02] VITALS: BP 118/69
[2021-12-28] MEDS: CETIRIZINE HCL 10 MG TABLET PO SCH (20:49)
[2021-12-28] MEDS: MIRTAZAPINE 15 MG TABLET PO SCH (20:49)
[2021-12-28] MEDS: QUEtiapine FUMARATE 200 MG TABLET PO SCH (20:49)
[2021-12-29 00:40] VITALS: BP 125/71
[2021-12-29] MEDS: LORazepam 2 MG TABLET PO PRN (00:46)
[2021-12-29] MEDS: HALOPERIDOL 5 MG TABLET PO PRN (00:47)
[2021-12-29] MEDS: LEVOTHYROXINE SODIUM 100 MCG TABLET PO SCH (06:54)
[2021-12-29] MEDS: QUEtiapine FUMARATE 25 MG TABLET PO SCH ×2 (10:04→17:18)
[2021-12-29] MEDS: VENLAFAXINE HCL 75 MG ER CAPSULE PO SCH (10:05)
[2021-12-29] MEDS: POLYETHYLENE GLYCOL 3350 17 GM PACKET PO SCH (10:05)
[2021-12-29] MEDS: DOCUSATE SODIUM 100 MG CAPSULE PO SCH (10:05)
[2021-12-29] MEDS: METOPROLOL TARTRATE 50 MG TABLET PO SCH ×2 (10:05→17:18)
[2021-12-29] MEDS: FAMOTIDINE 20 MG TABLET PO SCH ×2 (10:05→17:18)
[2021-12-29] MEDS: LamoTRIgine 100 MG TABLET PO SCH ×2 (10:05→17:18)
[2021-12-29] MEDS: CETIRIZINE HCL 10 MG TABLET PO SCH (21:19)
[2021-12-29] MEDS: MIRTAZAPINE 15 MG TABLET PO SCH (21:20)
[2021-12-29] MEDS: QUEtiapine FUMARATE 200 MG TABLET PO SCH (21:20)
[2021-12-30] MEDS: LEVOTHYROXINE SODIUM 100 MCG TABLET PO SCH (07:00)
[2021-12-30] MEDS: METOPROLOL TARTRATE 50 MG TABLET PO SCH ×2 (09:00→16:42)
[2021-12-30 09:15] VITALS: BP 100/54
[2021-12-30] MEDS: POLYETHYLENE GLYCOL 3350 17 GM PACKET PO SCH (10:33)
[2021-12-30] MEDS: DOCUSATE SODIUM 100 MG CAPSULE PO SCH (10:34)
[2021-12-30] MEDS: FAMOTIDINE 20 MG TABLET PO SCH ×2 (10:34→16:42)
[2021-12-30] MEDS: VENLAFAXINE HCL 75 MG ER CAPSULE PO SCH (10:34)
[2021-12-30] MEDS: LamoTRIgine 100 MG TABLET PO SCH ×2 (10:34→16:42)
[2021-12-30] MEDS: QUEtiapine FUMARATE 25 MG TABLET PO SCH ×2 (10:35→16:42)
[2021-12-30 16:28] VITALS: BP 122/68
[2021-12-30] MEDS: CETIRIZINE HCL 10 MG TABLET PO SCH (20:09)
[2021-12-30] MEDS: QUEtiapine FUMARATE 200 MG TABLET PO SCH (20:09)
[2021-12-30] MEDS: MIRTAZAPINE 15 MG TABLET PO SCH (20:09)
[2021-12-31] MEDS: LEVOTHYROXINE SODIUM 100 MCG TABLET PO SCH (06:45)
[2021-12-31 08:39] VITALS: BP 132/66
[2021-12-31] MEDS: POLYETHYLENE GLYCOL 3350 17 GM PACKET PO SCH (09:24)
[2021-12-31] MEDS: DOCUSATE SODIUM 100 MG CAPSULE PO SCH (09:26)
[2021-12-31] MEDS: VENLAFAXINE HCL 75 MG ER CAPSULE PO SCH (09:26)
[2021-12-31] MEDS: LamoTRIgine 100 MG TABLET PO SCH ×2 (09:26→16:39)
[2021-12-31] MEDS: FAMOTIDINE 20 MG TABLET PO SCH ×2 (09:26→16:40)
[2021-12-31] MEDS: METOPROLOL TARTRATE 50 MG TABLET PO SCH ×2 (09:27→16:40)
[2021-12-31] MEDS: QUEtiapine FUMARATE 25 MG TABLET PO SCH ×2 (09:27→16:39)
[2021-12-31 16:49] VITALS: BP 157/87
[2021-12-31] MEDS: MIRTAZAPINE 15 MG TABLET PO SCH (20:04)
[2021-12-31] MEDS: CETIRIZINE HCL 10 MG TABLET PO SCH (20:04)
[2021-12-31] MEDS: QUEtiapine FUMARATE 200 MG TABLET PO SCH (20:04)
[2022-01-01] MEDS: LEVOTHYROXINE SODIUM 100 MCG TABLET PO SCH (06:34)
[2022-01-01] MEDS: POLYETHYLENE GLYCOL 3350 17 GM PACKET PO SCH (08:20)
[2022-01-01] MEDS: FAMOTIDINE 20 MG TABLET PO SCH ×2 (08:21→16:47)
[2022-01-01] MEDS: METOPROLOL TARTRATE 50 MG TABLET PO SCH ×2 (08:21→16:46)
[2022-01-01] MEDS: VENLAFAXINE HCL 75 MG ER CAPSULE PO SCH (08:21)
[2022-01-01] MEDS: LamoTRIgine 100 MG TABLET PO SCH ×2 (08:21→16:46)
[2022-01-01] MEDS: QUEtiapine FUMARATE 25 MG TABLET PO SCH ×2 (08:21→16:47)
[2022-01-01] MEDS: DOCUSATE SODIUM 100 MG CAPSULE PO SCH (08:22)
[2022-01-01 08:48] VITALS: BP 127/64
[2022-01-01 16:00] VITALS: BP 120/70
[2022-01-01] MEDS: QUEtiapine FUMARATE 200 MG TABLET PO SCH (20:49)
[2022-01-01] MEDS: MIRTAZAPINE 15 MG TABLET PO SCH (20:49)
[2022-01-01] MEDS: CETIRIZINE HCL 10 MG TABLET PO SCH (20:49)
[2022-01-02] MEDS: LEVOTHYROXINE SODIUM 100 MCG TABLET PO SCH (06:47)
[2022-01-02 07:01] LABS: COVID AG,FIA SOURCE NASAL SWAB
[2022-01-02 08:29] VITALS: BP 139/78
[2022-01-02] MEDS: LamoTRIgine 100 MG TABLET PO SCH ×2 (09:50→16:52)
[2022-01-02] MEDS: POLYETHYLENE GLYCOL 3350 17 GM PACKET PO SCH (09:50)
[2022-01-02] MEDS: METOPROLOL TARTRATE 50 MG TABLET PO SCH ×2 (09:51→16:52)
[2022-01-02] MEDS: DOCUSATE SODIUM 100 MG CAPSULE PO SCH (09:51)
[2022-01-02] MEDS: HALOPERIDOL 5 MG TABLET PO PRN (09:51)
[2022-01-02] MEDS: QUEtiapine FUMARATE 25 MG TABLET PO SCH ×2 (09:51→16:52)
[2022-01-02] MEDS: LORazepam 2 MG TABLET PO PRN (09:51)
[2022-01-02] MEDS: FAMOTIDINE 20 MG TABLET PO SCH ×2 (09:51→16:52)
[2022-01-02] MEDS: VENLAFAXINE HCL 75 MG ER CAPSULE PO SCH (09:52)
[2022-01-02 15:23] LABS: APPEARANCE,URINE HAZY (CLEAR); BILIRUBIN,URINE NEGATIVE (NEGATIVE); GLUCOSE, URINE (UA) NEGATIVE (NEGATIVE); KETONES,URINE NEGATIVE (NEGATIVE); LEUKOCYTE ESTERASE ,URINE NEGATIVE (NEGATIVE); NITRATE,URINE NEGATIVE (NEGATIVE); OCCULT BLOOD,URINE NEGATIVE (NEGATIVE); PH,URINE 7.5 (5.0-8.0); PROTEIN,URINE NEGATIVE (NEGATIVE); SPECIFIC GRAVITIY, URINE 1.012 (1.003-1.030); UROBILINOGEN,URINE <=1.0 mg/dL (<=1.0)
[2022-01-02 16:04] VITALS: BP 125/75
[2022-01-02] MEDS: QUEtiapine FUMARATE 200 MG TABLET PO SCH (21:34)
[2022-01-02] MEDS: MIRTAZAPINE 15 MG TABLET PO SCH (21:35)
[2022-01-02] MEDS: CETIRIZINE HCL 10 MG TABLET PO SCH (21:35)
[2022-01-03] MEDS: LEVOTHYROXINE SODIUM 100 MCG TABLET PO SCH (06:25)
[2022-01-03] MEDS: DOCUSATE SODIUM 100 MG CAPSULE PO SCH (09:42)
[2022-01-03] MEDS: FAMOTIDINE 20 MG TABLET PO SCH ×2 (09:42→17:18)
[2022-01-03] MEDS: VENLAFAXINE HCL 75 MG ER CAPSULE PO SCH (09:42)
[2022-01-03] MEDS: QUEtiapine FUMARATE 25 MG TABLET PO SCH ×2 (09:42→17:18)
[2022-01-03] MEDS: LamoTRIgine 100 MG TABLET PO SCH ×2 (09:43→17:17)
[2022-01-03] MEDS: POLYETHYLENE GLYCOL 3350 17 GM PACKET PO SCH (09:43)
[2022-01-03] MEDS: METOPROLOL TARTRATE 50 MG TABLET PO SCH ×2 (09:43→17:18)
[2022-01-03] MEDS: LORazepam 2 MG TABLET PO PRN (09:48)
[2022-01-03] MEDS: HALOPERIDOL 5 MG TABLET PO PRN (09:49)
[2022-01-03 09:55] VITALS: BP 144/83
[2022-01-03 16:00] VITALS: BP 120/69
[2022-01-03] MEDS: CETIRIZINE HCL 10 MG TABLET PO SCH (21:45)
[2022-01-03] MEDS: QUEtiapine FUMARATE 200 MG TABLET PO SCH (21:45)
[2022-01-03] MEDS: MIRTAZAPINE 15 MG TABLET PO SCH (21:46)
[2022-01-04] MEDS: LEVOTHYROXINE SODIUM 100 MCG TABLET PO SCH (06:41)
[2022-01-04 08:04] VITALS: BP 108/66
[2022-01-04] MEDS: DOCUSATE SODIUM 100 MG CAPSULE PO SCH (08:56)
[2022-01-04] MEDS: FAMOTIDINE 20 MG TABLET PO SCH ×2 (08:57→16:33)
[2022-01-04] MEDS: QUEtiapine FUMARATE 25 MG TABLET PO SCH ×2 (08:57→16:33)
[2022-01-04] MEDS: POLYETHYLENE GLYCOL 3350 17 GM PACKET PO SCH (08:57)
[2022-01-04] MEDS: LamoTRIgine 100 MG TABLET PO SCH ×2 (08:59→16:34)
[2022-01-04] MEDS: VENLAFAXINE HCL 75 MG ER CAPSULE PO SCH (08:59)
[2022-01-04] MEDS: METOPROLOL TARTRATE 50 MG TABLET PO SCH ×2 (09:00→16:34)
[2022-01-04 14:18] VITALS: BP 130/72
[2022-01-04 16:15] VITALS: BP 147/76
[2022-01-04] MEDS: CETIRIZINE HCL 10 MG TABLET PO SCH (21:01)
[2022-01-04] MEDS: MIRTAZAPINE 15 MG TABLET PO SCH (21:02)
[2022-01-04] MEDS: QUEtiapine FUMARATE 200 MG TABLET PO SCH (21:02)
[2022-01-05] MEDS: LEVOTHYROXINE SODIUM 100 MCG TABLET PO SCH (06:34)
[2022-01-05 08:02] VITALS: BP 134/57
[2022-01-05] MEDS: POLYETHYLENE GLYCOL 3350 17 GM PACKET PO SCH (08:26)
[2022-01-05] MEDS: DOCUSATE SODIUM 100 MG CAPSULE PO SCH (08:27)
[2022-01-05] MEDS: FAMOTIDINE 20 MG TABLET PO SCH ×2 (08:27→16:56)
[2022-01-05] MEDS: METOPROLOL TARTRATE 50 MG TABLET PO SCH ×2 (08:27→16:56)
[2022-01-05] MEDS: QUEtiapine FUMARATE 25 MG TABLET PO SCH ×2 (08:27→16:57)
[2022-01-05] MEDS: LamoTRIgine 100 MG TABLET PO SCH ×2 (08:28→16:56)
[2022-01-05] MEDS: VENLAFAXINE HCL 75 MG ER CAPSULE PO SCH (08:28)
[2022-01-05 16:14] VITALS: BP 130/72
[2022-01-05] MEDS: MIRTAZAPINE 15 MG TABLET PO SCH (20:08)
[2022-01-05] MEDS: QUEtiapine FUMARATE 200 MG TABLET PO SCH (20:08)
[2022-01-05] MEDS: CETIRIZINE HCL 10 MG TABLET PO SCH (20:08)
[2022-01-06] MEDS: LEVOTHYROXINE SODIUM 100 MCG TABLET PO SCH (06:49)
[2022-01-06 08:05] VITALS: BP 95/51
[2022-01-06] MEDS: POLYETHYLENE GLYCOL 3350 17 GM PACKET PO SCH (08:36)
[2022-01-06] MEDS: VENLAFAXINE HCL 75 MG ER CAPSULE PO SCH (08:37)
[2022-01-06] MEDS: LamoTRIgine 100 MG TABLET PO SCH ×2 (08:37→16:28)
[2022-01-06] MEDS: METOPROLOL TARTRATE 50 MG TABLET PO SCH ×3 (08:37→16:29)
[2022-01-06] MEDS: FAMOTIDINE 20 MG TABLET PO SCH ×2 (08:37→16:28)
[2022-01-06] MEDS: QUEtiapine FUMARATE 25 MG TABLET PO SCH ×2 (08:39→16:29)
[2022-01-06] MEDS: DOCUSATE SODIUM 100 MG CAPSULE PO SCH (08:39)
[2022-01-06 16:23] VITALS: BP 131/64
[2022-01-06] MEDS: QUEtiapine FUMARATE 200 MG TABLET PO SCH (20:19)
[2022-01-06] MEDS: MIRTAZAPINE 15 MG TABLET PO SCH (20:19)
[2022-01-06] MEDS: CETIRIZINE HCL 10 MG TABLET PO SCH (20:19)
[2022-01-07] MEDS: LEVOTHYROXINE SODIUM 100 MCG TABLET PO SCH (07:08)
[2022-01-07 08:15] VITALS: BP 132/75
[2022-01-07] MEDS: QUEtiapine FUMARATE 25 MG TABLET PO SCH ×2 (08:17→16:41)
[2022-01-07] MEDS: POLYETHYLENE GLYCOL 3350 17 GM PACKET PO SCH (08:17)
[2022-01-07] MEDS: DOCUSATE SODIUM 100 MG CAPSULE PO SCH (08:17)
[2022-01-07] MEDS: METOPROLOL TARTRATE 50 MG TABLET PO SCH ×2 (08:17→16:40)
[2022-01-07] MEDS: VENLAFAXINE HCL 75 MG ER CAPSULE PO SCH (08:17)
[2022-01-07] MEDS: FAMOTIDINE 20 MG TABLET PO SCH ×2 (08:18→16:40)
[2022-01-07] MEDS: LamoTRIgine 100 MG TABLET PO SCH ×2 (08:18→16:40)
[2022-01-07 16:50] VITALS: BP 150/70
[2022-01-07] MEDS: CETIRIZINE HCL 10 MG TABLET PO SCH (20:37)
[2022-01-07] MEDS: QUEtiapine FUMARATE 200 MG TABLET PO SCH (20:37)
[2022-01-07] MEDS: MIRTAZAPINE 15 MG TABLET PO SCH (20:37)
[2022-01-08] MEDS: LEVOTHYROXINE SODIUM 100 MCG TABLET PO SCH (06:27)
[2022-01-08] MEDS: DOCUSATE SODIUM 100 MG CAPSULE PO SCH (08:21)
[2022-01-08] MEDS: QUEtiapine FUMARATE 25 MG TABLET PO SCH ×2 (08:22→16:24)
[2022-01-08] MEDS: POLYETHYLENE GLYCOL 3350 17 GM PACKET PO SCH (08:22)
[2022-01-08] MEDS: FAMOTIDINE 20 MG TABLET PO SCH ×2 (08:22→16:24)
[2022-01-08] MEDS: VENLAFAXINE HCL 75 MG ER CAPSULE PO SCH (08:23)
[2022-01-08] MEDS: METOPROLOL TARTRATE 50 MG TABLET PO SCH ×2 (08:23→16:23)
[2022-01-08] MEDS: LamoTRIgine 100 MG TABLET PO SCH ×2 (08:23→16:23)
[2022-01-08 08:35] VITALS: BP 105/62
[2022-01-08 16:36] VITALS: BP 140/90
[2022-01-08] MEDS: CETIRIZINE HCL 10 MG TABLET PO SCH (20:48)
[2022-01-08] MEDS: MIRTAZAPINE 15 MG TABLET PO SCH (20:48)
[2022-01-08] MEDS: QUEtiapine FUMARATE 200 MG TABLET PO SCH (20:48)
[2022-01-09] MEDS: LEVOTHYROXINE SODIUM 100 MCG TABLET PO SCH (06:28)
[2022-01-09 06:47] LABS: COVID AG,FIA SOURCE NASAL SWAB
[2022-01-09 08:20] VITALS: BP 114/62
[2022-01-09] MEDS: DOCUSATE SODIUM 100 MG CAPSULE PO SCH (08:21)
[2022-01-09] MEDS: QUEtiapine FUMARATE 25 MG TABLET PO SCH ×2 (08:22→16:19)
[2022-01-09] MEDS: POLYETHYLENE GLYCOL 3350 17 GM PACKET PO SCH (08:22)
[2022-01-09] MEDS: LamoTRIgine 100 MG TABLET PO SCH ×2 (08:23→16:19)
[2022-01-09] MEDS: VENLAFAXINE HCL 75 MG ER CAPSULE PO SCH (08:23)
[2022-01-09] MEDS: FAMOTIDINE 20 MG TABLET PO SCH ×2 (08:25→16:19)
[2022-01-09] MEDS: METOPROLOL TARTRATE 50 MG TABLET PO SCH ×2 (08:26→16:19)
[2022-01-09 16:23] VITALS: BP 162/78
[2022-01-09] MEDS: MIRTAZAPINE 15 MG TABLET PO SCH (20:07)
[2022-01-09] MEDS: QUEtiapine FUMARATE 200 MG TABLET PO SCH (20:07)
[2022-01-09] MEDS: CETIRIZINE HCL 10 MG TABLET PO SCH (20:07)
[2022-01-10] MEDS: LEVOTHYROXINE SODIUM 100 MCG TABLET PO SCH (06:34)
[2022-01-10 08:25] VITALS: BP 105/64
[2022-01-10 09:19] VITALS: BP 138/68
[2022-01-10] MEDS: POLYETHYLENE GLYCOL 3350 17 GM PACKET PO SCH (09:22)
[2022-01-10] MEDS: LamoTRIgine 100 MG TABLET PO SCH ×2 (09:23→16:44)
[2022-01-10] MEDS: FAMOTIDINE 20 MG TABLET PO SCH ×2 (09:23→16:44)
[2022-01-10] MEDS: QUEtiapine FUMARATE 25 MG TABLET PO SCH ×2 (09:23→16:45)
[2022-01-10] MEDS: DOCUSATE SODIUM 100 MG CAPSULE PO SCH (09:23)
[2022-01-10] MEDS: VENLAFAXINE HCL 75 MG ER CAPSULE PO SCH (09:23)
[2022-01-10] MEDS: METOPROLOL TARTRATE 50 MG TABLET PO SCH ×2 (09:23→16:44)
[2022-01-10 16:32] VITALS: BP 135/64
[2022-01-10] MEDS: MIRTAZAPINE 15 MG TABLET PO SCH (20:17)
[2022-01-10] MEDS: QUEtiapine FUMARATE 200 MG TABLET PO SCH (20:17)
[2022-01-10] MEDS: CETIRIZINE HCL 10 MG TABLET PO SCH (20:21)
[2022-01-11] MEDS: LEVOTHYROXINE SODIUM 100 MCG TABLET PO SCH (06:21)
[2022-01-11] MEDS: DOCUSATE SODIUM 100 MG CAPSULE PO SCH (08:44)
[2022-01-11] MEDS: VENLAFAXINE HCL 75 MG ER CAPSULE PO SCH (08:44)
[2022-01-11] MEDS: QUEtiapine FUMARATE 25 MG TABLET PO SCH ×2 (08:47→16:36)
[2022-01-11] MEDS: FAMOTIDINE 20 MG TABLET PO SCH ×2 (08:47→16:36)
[2022-01-11] MEDS: LamoTRIgine 100 MG TABLET PO SCH ×2 (08:48→16:35)
[2022-01-11] MEDS: POLYETHYLENE GLYCOL 3350 17 GM PACKET PO SCH (08:48)
[2022-01-11] MEDS: METOPROLOL TARTRATE 50 MG TABLET PO SCH ×2 (08:50→16:35)
[2022-01-11 09:20] VITALS: BP 112/65
[2022-01-11 16:36] VITALS: BP 122/61
[2022-01-11] MEDS: MIRTAZAPINE 15 MG TABLET PO SCH (20:07)
[2022-01-11] MEDS: CETIRIZINE HCL 10 MG TABLET PO SCH (20:08)
[2022-01-11] MEDS: QUEtiapine FUMARATE 200 MG TABLET PO SCH (20:08)
[2022-01-12 00:08] VITALS: BP 120/70
[2022-01-12] MEDS: LEVOTHYROXINE SODIUM 100 MCG TABLET PO SCH (06:43)
[2022-01-12 08:02] VITALS: BP 145/96
[2022-01-12] MEDS: METOPROLOL TARTRATE 50 MG TABLET PO SCH ×2 (09:20→16:23)
[2022-01-12] MEDS: VENLAFAXINE HCL 75 MG ER CAPSULE PO SCH (09:20)
[2022-01-12] MEDS: QUEtiapine FUMARATE 25 MG TABLET PO SCH ×2 (09:20→16:23)
[2022-01-12] MEDS: LamoTRIgine 100 MG TABLET PO SCH ×2 (09:20→16:23)
[2022-01-12] MEDS: DOCUSATE SODIUM 100 MG CAPSULE PO SCH (09:22)
[2022-01-12] MEDS: FAMOTIDINE 20 MG TABLET PO SCH ×2 (09:22→16:23)
[2022-01-12] MEDS: POLYETHYLENE GLYCOL 3350 17 GM PACKET PO SCH (09:22)
[2022-01-12] MEDS: BACITRACIN 28 GM OINTMENT TP SCH ×2 (09:41→16:24)
[2022-01-12 20:17] VITALS: BP 143/73
[2022-01-12] MEDS: CETIRIZINE HCL 10 MG TABLET PO SCH (20:18)
[2022-01-12] MEDS: QUEtiapine FUMARATE 200 MG TABLET PO SCH (20:19)
[2022-01-12] MEDS: MIRTAZAPINE 15 MG TABLET PO SCH (20:19)
[2022-01-13] MEDS: LEVOTHYROXINE SODIUM 100 MCG TABLET PO SCH (06:11)
[2022-01-13 08:02] VITALS: BP 139/95
[2022-01-13] MEDS: POLYETHYLENE GLYCOL 3350 17 GM PACKET PO SCH (08:24)
[2022-01-13] MEDS: DOCUSATE SODIUM 100 MG CAPSULE PO SCH (08:25)
[2022-01-13] MEDS: VENLAFAXINE HCL 75 MG ER CAPSULE PO SCH (08:25)
[2022-01-13] MEDS: BACITRACIN 28 GM OINTMENT TP SCH ×2 (08:25→16:24)
[2022-01-13] MEDS: LamoTRIgine 100 MG TABLET PO SCH ×2 (08:26→16:19)
[2022-01-13] MEDS: QUEtiapine FUMARATE 25 MG TABLET PO SCH ×2 (08:26→16:20)
[2022-01-13] MEDS: FAMOTIDINE 20 MG TABLET PO SCH ×2 (08:26→16:19)
[2022-01-13] MEDS: METOPROLOL TARTRATE 50 MG TABLET PO SCH ×2 (08:26→16:20)
[2022-01-13 16:44] VITALS: BP 128/71
[2022-01-13] MEDS: QUEtiapine FUMARATE 200 MG TABLET PO SCH (20:13)
[2022-01-13] MEDS: CETIRIZINE HCL 10 MG TABLET PO SCH (20:13)
[2022-01-13] MEDS: MIRTAZAPINE 15 MG TABLET PO SCH (20:14)
[2022-01-14] MEDS: LEVOTHYROXINE SODIUM 100 MCG TABLET PO SCH (06:44)
[2022-01-14 08:25] VITALS: BP 132/63
[2022-01-14] MEDS: VENLAFAXINE HCL 75 MG ER CAPSULE PO SCH (08:59)
[2022-01-14] MEDS: METOPROLOL TARTRATE 50 MG TABLET PO SCH ×2 (08:59→16:43)
[2022-01-14] MEDS: FAMOTIDINE 20 MG TABLET PO SCH ×2 (09:00→16:44)
[2022-01-14] MEDS: LamoTRIgine 100 MG TABLET PO SCH ×2 (09:00→16:43)
[2022-01-14] MEDS: DOCUSATE SODIUM 100 MG CAPSULE PO SCH (09:00)
[2022-01-14] MEDS: POLYETHYLENE GLYCOL 3350 17 GM PACKET PO SCH (09:01)
[2022-01-14] MEDS: QUEtiapine FUMARATE 25 MG TABLET PO SCH ×2 (09:01→16:43)
[2022-01-14] MEDS: BACITRACIN 28 GM OINTMENT TP SCH ×2 (09:01→16:44)
[2022-01-14 16:36] VITALS: BP 119/62
[2022-01-14] MEDS: CETIRIZINE HCL 10 MG TABLET PO SCH (20:12)
[2022-01-14] MEDS: MIRTAZAPINE 15 MG TABLET PO SCH (20:12)
[2022-01-14] MEDS: QUEtiapine FUMARATE 200 MG TABLET PO SCH (20:12)
[2022-01-14 20:17] VITALS: BP 125/69
[2022-01-15] MEDS: LEVOTHYROXINE SODIUM 100 MCG TABLET PO SCH (06:39)
[2022-01-15 08:37] VITALS: BP 121/84
[2022-01-15] MEDS: LamoTRIgine 100 MG TABLET PO SCH ×2 (10:08→16:10)
[2022-01-15] MEDS: POLYETHYLENE GLYCOL 3350 17 GM PACKET PO SCH (10:08)
[2022-01-15] MEDS: METOPROLOL TARTRATE 50 MG TABLET PO SCH ×2 (10:09→16:09)
[2022-01-15] MEDS: QUEtiapine FUMARATE 25 MG TABLET PO SCH ×2 (10:09→16:09)
[2022-01-15] MEDS: FAMOTIDINE 20 MG TABLET PO SCH ×2 (10:09→16:10)
[2022-01-15] MEDS: DOCUSATE SODIUM 100 MG CAPSULE PO SCH (10:09)
[2022-01-15] MEDS: VENLAFAXINE HCL 75 MG ER CAPSULE PO SCH (10:09)
[2022-01-15] MEDS: BACITRACIN 28 GM OINTMENT TP SCH ×2 (10:10→17:31)
[2022-01-15 16:05] VITALS: BP_SYST 150; BP_SYST 158; BP_DIAS 86
[2022-01-15] MEDS: MIRTAZAPINE 15 MG TABLET PO SCH (20:01)
[2022-01-15] MEDS: CETIRIZINE HCL 10 MG TABLET PO SCH (20:01)
[2022-01-15] MEDS: QUEtiapine FUMARATE 200 MG TABLET PO SCH (20:02)
[2022-01-16] MEDS: LEVOTHYROXINE SODIUM 100 MCG TABLET PO SCH (06:31)
[2022-01-16 08:20] VITALS: BP 163/84
[2022-01-16] MEDS: METOPROLOL TARTRATE 50 MG TABLET PO SCH ×2 (08:33→16:02)
[2022-01-16] MEDS: FAMOTIDINE 20 MG TABLET PO SCH ×2 (08:33→16:02)
[2022-01-16] MEDS: VENLAFAXINE HCL 75 MG ER CAPSULE PO SCH (08:33)
[2022-01-16] MEDS: LamoTRIgine 100 MG TABLET PO SCH ×2 (08:33→16:02)
[2022-01-16] MEDS: DOCUSATE SODIUM 100 MG CAPSULE PO SCH (08:33)
[2022-01-16] MEDS: QUEtiapine FUMARATE 25 MG TABLET PO SCH ×2 (08:34→16:02)
[2022-01-16] MEDS: POLYETHYLENE GLYCOL 3350 17 GM PACKET PO SCH (08:34)
[2022-01-16] MEDS: BACITRACIN 28 GM OINTMENT TP SCH ×2 (09:44→16:03)
[2022-01-16] MEDS: IBUPROFEN 400 MG TABLET PO PRN (10:57)
[2022-01-16 16:12] VITALS: BP 128/82
[2022-01-16] MEDS: MIRTAZAPINE 15 MG TABLET PO SCH (20:01)
[2022-01-16] MEDS: QUEtiapine FUMARATE 200 MG TABLET PO SCH (20:02)
[2022-01-16 20:53] LABS: COVID AG,FIA SOURCE NASAL SWAB
[2022-01-16] MEDS: CETIRIZINE HCL 10 MG TABLET PO SCH (21:37)
[2022-01-17] MEDS: LEVOTHYROXINE SODIUM 100 MCG TABLET PO SCH (06:43)
[2022-01-17 08:41] VITALS: BP 160/79
[2022-01-17] MEDS: QUEtiapine FUMARATE 25 MG TABLET PO SCH ×2 (08:49→16:50)
[2022-01-17] MEDS: DOCUSATE SODIUM 100 MG CAPSULE PO SCH (08:49)
[2022-01-17] MEDS: BACITRACIN 28 GM OINTMENT TP SCH ×2 (08:50→16:51)
[2022-01-17] MEDS: LamoTRIgine 100 MG TABLET PO SCH ×2 (08:50→16:50)
[2022-01-17] MEDS: VENLAFAXINE HCL 75 MG ER CAPSULE PO SCH (08:50)
[2022-01-17] MEDS: METOPROLOL TARTRATE 50 MG TABLET PO SCH ×2 (08:50→16:50)
[2022-01-17] MEDS: POLYETHYLENE GLYCOL 3350 17 GM PACKET PO SCH (08:50)
[2022-01-17] MEDS: FAMOTIDINE 20 MG TABLET PO SCH ×2 (08:50→16:51)
[2022-01-17 16:06] VITALS: BP 140/89
[2022-01-17] MEDS: MIRTAZAPINE 15 MG TABLET PO SCH (20:21)
[2022-01-17] MEDS: CETIRIZINE HCL 10 MG TABLET PO SCH (20:21)
[2022-01-17] MEDS: QUEtiapine FUMARATE 200 MG TABLET PO SCH (20:22)
[2022-01-18 00:38] VITALS: BP 129/79
[2022-01-18] MEDS: LORazepam 2 MG TABLET PO PRN (00:41)
[2022-01-18] MEDS: LEVOTHYROXINE SODIUM 100 MCG TABLET PO SCH (06:43)
[2022-01-18 08:10] VITALS: BP 139/74
[2022-01-18] MEDS: DOCUSATE SODIUM 100 MG CAPSULE PO SCH (09:18)
[2022-01-18] MEDS: QUEtiapine FUMARATE 25 MG TABLET PO SCH ×2 (09:19→16:17)
[2022-01-18] MEDS: LamoTRIgine 100 MG TABLET PO SCH ×2 (09:20→16:17)
[2022-01-18] MEDS: BACITRACIN 28 GM OINTMENT TP SCH ×2 (09:21→16:17)
[2022-01-18] MEDS: METOPROLOL TARTRATE 50 MG TABLET PO SCH ×2 (09:21→16:17)
[2022-01-18] MEDS: VENLAFAXINE HCL 75 MG ER CAPSULE PO SCH (09:21)
[2022-01-18] MEDS: POLYETHYLENE GLYCOL 3350 17 GM PACKET PO SCH (09:21)
[2022-01-18] MEDS: FAMOTIDINE 20 MG TABLET PO SCH ×2 (09:21→16:17)
[2022-01-18] MEDS: QUEtiapine FUMARATE 200 MG TABLET PO SCH (21:13)
[2022-01-18] MEDS: CETIRIZINE HCL 10 MG TABLET PO SCH (21:13)
[2022-01-18] MEDS: MIRTAZAPINE 15 MG TABLET PO SCH (21:13)
[2022-01-19] MEDS: LEVOTHYROXINE SODIUM 100 MCG TABLET PO SCH (06:37)
[2022-01-19 08:39] VITALS: BP 167/90
[2022-01-19] MEDS: VENLAFAXINE HCL 75 MG ER CAPSULE PO SCH (09:43)
[2022-01-19] MEDS: FAMOTIDINE 20 MG TABLET PO SCH ×2 (09:43→16:01)
[2022-01-19] MEDS: DOCUSATE SODIUM 100 MG CAPSULE PO SCH (09:43)
[2022-01-19] MEDS: METOPROLOL TARTRATE 50 MG TABLET PO SCH ×2 (09:43→16:01)
[2022-01-19] MEDS: BACITRACIN 28 GM OINTMENT TP SCH ×2 (09:44→16:02)
[2022-01-19] MEDS: POLYETHYLENE GLYCOL 3350 17 GM PACKET PO SCH (09:44)
[2022-01-19] MEDS: LamoTRIgine 100 MG TABLET PO SCH ×2 (09:44→16:02)
[2022-01-19] MEDS: QUEtiapine FUMARATE 25 MG TABLET PO SCH ×2 (09:44→16:01)
[2022-01-19 17:48] VITALS: BP 148/74
[2022-01-19] MEDS: CETIRIZINE HCL 10 MG TABLET PO SCH (21:07)
[2022-01-19] MEDS: QUEtiapine FUMARATE 200 MG TABLET PO SCH (21:07)
[2022-01-19] MEDS: MIRTAZAPINE 15 MG TABLET PO SCH (21:07)
[2022-01-20] MEDS: LEVOTHYROXINE SODIUM 100 MCG TABLET PO SCH (06:54)
[2022-01-20 08:35] VITALS: BP 126/68
[2022-01-20] MEDS: DOCUSATE SODIUM 100 MG CAPSULE PO SCH (08:50)
[2022-01-20] MEDS: QUEtiapine FUMARATE 25 MG TABLET PO SCH ×2 (08:50→16:58)
[2022-01-20] MEDS: LamoTRIgine 100 MG TABLET PO SCH ×2 (08:50→16:58)
[2022-01-20] MEDS: METOPROLOL TARTRATE 50 MG TABLET PO SCH ×2 (08:50→17:47)
[2022-01-20] MEDS: VENLAFAXINE HCL 75 MG ER CAPSULE PO SCH (08:50)
[2022-01-20] MEDS: FAMOTIDINE 20 MG TABLET PO SCH ×2 (08:50→16:58)
[2022-01-20] MEDS: POLYETHYLENE GLYCOL 3350 17 GM PACKET PO SCH (08:50)
[2022-01-20] MEDS: BACITRACIN 28 GM OINTMENT TP SCH ×2 (08:51→17:47)
[2022-01-20] MEDS: HYDROCORTISONE 2.5% 30 GM CREAM TP SCH (09:00)
[2022-01-20 17:08] VITALS: BP 136/76
[2022-01-20] MEDS: MIRTAZAPINE 15 MG TABLET PO SCH (21:28)
[2022-01-20] MEDS: CETIRIZINE HCL 10 MG TABLET PO SCH (21:28)
[2022-01-20] MEDS: QUEtiapine FUMARATE 200 MG TABLET PO SCH (21:28)
[2022-01-21] MEDS: LEVOTHYROXINE SODIUM 100 MCG TABLET PO SCH (06:36)
[2022-01-21 08:29] VITALS: BP_SYST 123; BP_SYST 142; BP_DIAS 59; BP_DIAS 78
[2022-01-21] MEDS: LamoTRIgine 100 MG TABLET PO SCH ×2 (10:51→17:25)
[2022-01-21] MEDS: FAMOTIDINE 20 MG TABLET PO SCH ×2 (10:51→17:25)
[2022-01-21] MEDS: QUEtiapine FUMARATE 25 MG TABLET PO SCH ×2 (10:51→17:25)
[2022-01-21] MEDS: VENLAFAXINE HCL 75 MG ER CAPSULE PO SCH (10:52)
[2022-01-21] MEDS: METOPROLOL TARTRATE 50 MG TABLET PO SCH ×2 (10:52→17:25)
[2022-01-21] MEDS: HYDROCORTISONE 2.5% 30 GM CREAM TP SCH (10:52)
[2022-01-21] MEDS: POLYETHYLENE GLYCOL 3350 17 GM PACKET PO SCH (10:52)
[2022-01-21] MEDS: BACITRACIN 28 GM OINTMENT TP SCH ×2 (10:52→17:25)
[2022-01-21] MEDS: DOCUSATE SODIUM 100 MG CAPSULE PO SCH (10:52)
[2022-01-21 16:23] VITALS: BP 120/69
[2022-01-21] MEDS: QUEtiapine FUMARATE 200 MG TABLET PO SCH (21:12)
[2022-01-21] MEDS: CETIRIZINE HCL 10 MG TABLET PO SCH (21:12)
[2022-01-21] MEDS: MIRTAZAPINE 15 MG TABLET PO SCH (21:12)
[2022-01-22] MEDS: LEVOTHYROXINE SODIUM 100 MCG TABLET PO SCH (06:08)
[2022-01-22] MEDS: LOPERAMIDE HCL 2 MG CAPSULE PO PRN ×2 (07:57→12:35)
[2022-01-22] MEDS: METOPROLOL TARTRATE 50 MG TABLET PO SCH ×3 (07:58→16:44)
[2022-01-22] MEDS: QUEtiapine FUMARATE 25 MG TABLET PO SCH ×2 (07:58→16:44)
[2022-01-22] MEDS: VENLAFAXINE HCL 75 MG ER CAPSULE PO SCH (07:59)
[2022-01-22] MEDS: LamoTRIgine 100 MG TABLET PO SCH ×2 (07:59→16:44)
[2022-01-22] MEDS: BACITRACIN 28 GM OINTMENT TP SCH ×2 (08:00→16:45)
[2022-01-22] MEDS: FAMOTIDINE 20 MG TABLET PO SCH ×2 (08:00→16:44)
[2022-01-22] MEDS: DOCUSATE SODIUM 100 MG CAPSULE PO SCH (08:03)
[2022-01-22] MEDS: POLYETHYLENE GLYCOL 3350 17 GM PACKET PO SCH (08:03)
[2022-01-22 08:14] VITALS: BP 113/55
[2022-01-22] MEDS: HYDROCORTISONE 2.5% 30 GM CREAM TP SCH (12:36)
[2022-01-22] MEDS: HALOPERIDOL 5 MG TABLET PO PRN (12:53)
[2022-01-22 16:39] VITALS: BP 132/77
[2022-01-22] MEDS: QUEtiapine FUMARATE 200 MG TABLET PO SCH (20:49)
[2022-01-22] MEDS: CETIRIZINE HCL 10 MG TABLET PO SCH (20:49)
[2022-01-22] MEDS: MIRTAZAPINE 15 MG TABLET PO SCH (20:49)
[2022-01-23] MEDS: LEVOTHYROXINE SODIUM 100 MCG TABLET PO SCH (06:54)
[2022-01-23 07:04] LABS: COVID AG,FIA SOURCE NASAL SWAB
[2022-01-23] MEDS: LOPERAMIDE HCL 2 MG CAPSULE PO PRN ×3 (08:00→09:32)
[2022-01-23 08:14] VITALS: BP 147/66
[2022-01-23] MEDS: FAMOTIDINE 20 MG TABLET PO SCH ×2 (08:29→16:41)
[2022-01-23] MEDS: HYDROCORTISONE 2.5% 30 GM CREAM TP SCH (08:29)
[2022-01-23] MEDS: QUEtiapine FUMARATE 25 MG TABLET PO SCH ×2 (08:29→16:41)
[2022-01-23] MEDS: METOPROLOL TARTRATE 50 MG TABLET PO SCH ×2 (08:30→16:41)
[2022-01-23] MEDS: BACITRACIN 28 GM OINTMENT TP SCH ×2 (08:31→16:42)
[2022-01-23] MEDS: LamoTRIgine 100 MG TABLET PO SCH ×2 (08:31→16:40)
[2022-01-23] MEDS: VENLAFAXINE HCL 75 MG ER CAPSULE PO SCH (08:31)
[2022-01-23] MEDS: DOCUSATE SODIUM 100 MG CAPSULE PO SCH (09:00)
[2022-01-23] MEDS: POLYETHYLENE GLYCOL 3350 17 GM PACKET PO SCH (09:00)
[2022-01-23 16:00] VITALS: BP 148/88
[2022-01-23] MEDS: CETIRIZINE HCL 10 MG TABLET PO SCH (21:45)
[2022-01-23] MEDS: MIRTAZAPINE 15 MG TABLET PO SCH (21:51)
[2022-01-23] MEDS: QUEtiapine FUMARATE 200 MG TABLET PO SCH (21:51)
[2022-01-24] MEDS: LEVOTHYROXINE SODIUM 100 MCG TABLET PO SCH (06:44)
[2022-01-24] MEDS: FAMOTIDINE 20 MG TABLET PO SCH ×2 (08:42→16:08)
[2022-01-24] MEDS: METOPROLOL TARTRATE 50 MG TABLET PO SCH ×2 (08:42→16:08)
[2022-01-24] MEDS: LamoTRIgine 100 MG TABLET PO SCH ×2 (08:43→16:08)
[2022-01-24] MEDS: HYDROCORTISONE 2.5% 30 GM CREAM TP SCH (08:43)
[2022-01-24] MEDS: QUEtiapine FUMARATE 25 MG TABLET PO SCH ×2 (08:43→16:08)
[2022-01-24] MEDS: BACITRACIN 28 GM OINTMENT TP SCH ×2 (08:43→16:08)
[2022-01-24] MEDS: VENLAFAXINE HCL 75 MG ER CAPSULE PO SCH (08:43)
[2022-01-24 09:42] VITALS: BP 166/88
[2022-01-24 16:25] VITALS: BP 107/66
[2022-01-24] MEDS: CETIRIZINE HCL 10 MG TABLET PO SCH (20:41)
[2022-01-24] MEDS: QUEtiapine FUMARATE 200 MG TABLET PO SCH (20:41)
[2022-01-24] MEDS: MIRTAZAPINE 15 MG TABLET PO SCH (20:42)
[2022-01-25] VITALS (10 sets, daily range): BP systolic 104–154; BP diastolic 68–95
[2022-01-25] MEDS: LEVOTHYROXINE SODIUM 100 MCG TABLET PO SCH (06:41)
[2022-01-25] MEDS: QUEtiapine FUMARATE 25 MG TABLET PO SCH ×3 (08:30→16:34)
[2022-01-25] MEDS: LOPERAMIDE HCL 2 MG CAPSULE PO PRN (08:30)
[2022-01-25] MEDS: METOPROLOL TARTRATE 50 MG TABLET PO SCH ×3 (08:31→16:12)
[2022-01-25] MEDS: VENLAFAXINE HCL 75 MG ER CAPSULE PO SCH ×2 (08:31→09:00)
[2022-01-25] MEDS: FAMOTIDINE 20 MG TABLET PO SCH ×3 (08:31→16:34)
[2022-01-25] MEDS: HYDROCORTISONE 2.5% 30 GM CREAM TP SCH ×2 (08:32→09:00)
[2022-01-25] MEDS: BACITRACIN 28 GM OINTMENT TP SCH ×3 (08:32→16:13)
[2022-01-25] MEDS: LamoTRIgine 100 MG TABLET PO SCH ×3 (08:32→16:12)
[2022-01-25 19:41] LABS: APPEARANCE,URINE HAZY (CLEAR); BILIRUBIN,URINE NEGATIVE (NEGATIVE); GLUCOSE, URINE (UA) NEGATIVE (NEGATIVE); KETONES,URINE NEGATIVE (NEGATIVE); LEUKOCYTE ESTERASE ,URINE LARGE (NEGATIVE); NITRATE,URINE NEGATIVE (NEGATIVE); OCCULT BLOOD,URINE NEGATIVE (NEGATIVE); PH,URINE 7.5 (5.0-8.0); PROTEIN,URINE NEGATIVE (NEGATIVE); SPECIFIC GRAVITIY, URINE 1.009 (1.003-1.030); UROBILINOGEN,URINE <=1.0 mg/dL (<=1.0)
[2022-01-25 20:00] LABS: RBC,URINE 0-2 /HPF (0-2); SQUAMOUS EPITHELIAL CELL,UR Few /LPF (None Seen)
[2022-01-25 20:01] LABS: AMORPHOUS SEDIMENT,UR Rare /LPF (None Seen); BACTERIA,URINE None Seen /HPF (None Seen)
[2022-01-25] MEDS: MIRTAZAPINE 15 MG TABLET PO SCH (21:00)
[2022-01-25] MEDS: QUEtiapine FUMARATE 200 MG TABLET PO SCH (21:36)
[2022-01-25] MEDS: CETIRIZINE HCL 10 MG TABLET PO SCH (21:36)
[2022-01-26] MEDS: LEVOTHYROXINE SODIUM 100 MCG TABLET PO SCH (06:49)
[2022-01-26] MEDS: FAMOTIDINE 20 MG TABLET PO SCH ×3 (08:24→16:25)
[2022-01-26] MEDS: METOPROLOL TARTRATE 50 MG TABLET PO SCH ×3 (08:24→16:25)
[2022-01-26] MEDS: LamoTRIgine 100 MG TABLET PO SCH ×3 (08:25→16:24)
[2022-01-26] MEDS: QUEtiapine FUMARATE 25 MG TABLET PO SCH ×3 (08:25→16:25)
[2022-01-26] MEDS: HYDROCORTISONE 2.5% 30 GM CREAM TP SCH (08:25)
[2022-01-26] MEDS: VENLAFAXINE HCL 75 MG ER CAPSULE PO SCH ×2 (08:25→09:00)
[2022-01-26] MEDS: BACITRACIN 28 GM OINTMENT TP SCH ×2 (08:25→16:25)
[2022-01-26 08:30] VITALS: BP 152/78
[2022-01-26] MEDS: LOPERAMIDE HCL 2 MG CAPSULE PO PRN (16:25)
[2022-01-26 16:50] VITALS: BP 153/66
[2022-01-26] MEDS: MetroNIDAZOLE 500 MG TABLET PO SCH (17:17)
[2022-01-26] MEDS: CETIRIZINE HCL 10 MG TABLET PO SCH (20:16)
[2022-01-26] MEDS: MIRTAZAPINE 15 MG TABLET PO SCH (20:16)
[2022-01-26] MEDS: QUEtiapine FUMARATE 200 MG TABLET PO SCH (20:17)
[2022-01-27] MEDS: LEVOTHYROXINE SODIUM 100 MCG TABLET PO SCH (06:50)
[2022-01-27] MEDS: MetroNIDAZOLE 500 MG TABLET PO SCH ×4 (08:00→16:49)
[2022-01-27 09:00] VITALS: BP 168/68
[2022-01-27] MEDS: LamoTRIgine 100 MG TABLET PO SCH ×3 (09:00→16:49)
[2022-01-27] MEDS: FAMOTIDINE 20 MG TABLET PO SCH ×3 (09:00→16:50)
[2022-01-27] MEDS: QUEtiapine FUMARATE 25 MG TABLET PO SCH ×3 (09:00→16:51)
[2022-01-27] MEDS: METOPROLOL TARTRATE 50 MG TABLET PO SCH ×3 (09:00→16:50)
[2022-01-27] MEDS: HYDROCORTISONE 2.5% 30 GM CREAM TP SCH (09:15)
[2022-01-27] MEDS: VENLAFAXINE HCL 75 MG ER CAPSULE PO SCH (09:20)
[2022-01-27] MEDS: BACITRACIN 28 GM OINTMENT TP SCH ×2 (09:21→16:51)
[2022-01-27 12:00] VITALS: BP 168/78
[2022-01-27 16:06] VITALS: BP 153/92
[2022-01-27] MEDS: MIRTAZAPINE 15 MG TABLET PO SCH (20:59)
[2022-01-27] MEDS: QUEtiapine FUMARATE 200 MG TABLET PO SCH (21:00)
[2022-01-27] MEDS: CETIRIZINE HCL 10 MG TABLET PO SCH (21:00)
[2022-01-28] VITALS: BP 123/67
[2022-01-28] MEDS: LEVOTHYROXINE SODIUM 100 MCG TABLET PO SCH (06:17)
[2022-01-28] MEDS: MetroNIDAZOLE 500 MG TABLET PO SCH ×3 (08:00→16:00)
[2022-01-28] MEDS: VENLAFAXINE HCL 75 MG ER CAPSULE PO SCH (09:00)
[2022-01-28] MEDS: QUEtiapine FUMARATE 25 MG TABLET PO SCH ×2 (09:00→16:49)
[2022-01-28] MEDS: HYDROCORTISONE 2.5% 30 GM CREAM TP SCH (09:00)
[2022-01-28] MEDS: FAMOTIDINE 20 MG TABLET PO SCH ×2 (09:00→16:49)
[2022-01-28] MEDS: METOPROLOL TARTRATE 50 MG TABLET PO SCH ×2 (09:00→16:49)
[2022-01-28] MEDS: LamoTRIgine 100 MG TABLET PO SCH ×2 (09:00→16:50)
[2022-01-28] MEDS: BACITRACIN 28 GM OINTMENT TP SCH ×2 (09:00→16:51)
[2022-01-28 09:01] VITALS: BP 140/78
[2022-01-28 16:26] VITALS: BP 154/88
[2022-01-28 20:17] VITALS: BP 153/78
[2022-01-28] MEDS: MIRTAZAPINE 15 MG TABLET PO SCH (21:00)
[2022-01-28] MEDS: CETIRIZINE HCL 10 MG TABLET PO SCH (21:00)
[2022-01-28] MEDS: QUEtiapine FUMARATE 200 MG TABLET PO SCH (21:00)
[2022-01-29] MEDS: LEVOTHYROXINE SODIUM 100 MCG TABLET PO SCH (06:56)
[2022-01-29] MEDS: MetroNIDAZOLE 500 MG TABLET PO SCH ×2 (08:00→16:45)
[2022-01-29] MEDS: QUEtiapine FUMARATE 25 MG TABLET PO SCH ×3 (08:23→16:47)
[2022-01-29] MEDS: VENLAFAXINE HCL 75 MG ER CAPSULE PO SCH ×2 (08:23→09:00)
[2022-01-29] MEDS: LamoTRIgine 100 MG TABLET PO SCH ×3 (08:23→16:46)
[2022-01-29] MEDS: HYDROCORTISONE 2.5% 30 GM CREAM TP SCH ×2 (08:25→10:11)
[2022-01-29] MEDS: FAMOTIDINE 20 MG TABLET PO SCH ×3 (08:25→16:46)
[2022-01-29] MEDS: BACITRACIN 28 GM OINTMENT TP SCH ×3 (08:25→16:47)
[2022-01-29] MEDS: METOPROLOL TARTRATE 50 MG TABLET PO SCH ×3 (08:25→16:45)
[2022-01-29 09:01] VITALS: BP 175/84
[2022-01-29 16:05] VITALS: BP 158/81
[2022-01-29] MEDS: QUEtiapine FUMARATE 200 MG TABLET PO SCH (21:00)
[2022-01-29] MEDS: MIRTAZAPINE 15 MG TABLET PO SCH (21:00)
[2022-01-29] MEDS: CETIRIZINE HCL 10 MG TABLET PO SCH (21:00)
[2022-01-30] MEDS: LEVOTHYROXINE SODIUM 100 MCG TABLET PO SCH (06:49)
[2022-01-30 07:16] LABS: COVID AG,FIA SOURCE NASAL SWAB
[2022-01-30 08:35] VITALS: BP 142/84
[2022-01-30] MEDS: METOPROLOL TARTRATE 50 MG TABLET PO SCH ×2 (10:50→16:30)
[2022-01-30] MEDS: LamoTRIgine 100 MG TABLET PO SCH ×2 (10:50→16:29)
[2022-01-30] MEDS: MetroNIDAZOLE 500 MG TABLET PO SCH ×3 (10:51→16:30)
[2022-01-30] MEDS: VENLAFAXINE HCL 75 MG ER CAPSULE PO SCH (10:51)
[2022-01-30] MEDS: FAMOTIDINE 20 MG TABLET PO SCH ×2 (10:52→16:30)
[2022-01-30] MEDS: QUEtiapine FUMARATE 25 MG TABLET PO SCH ×2 (10:53→16:30)
[2022-01-30] MEDS: HYDROCORTISONE 2.5% 30 GM CREAM TP SCH (10:55)
[2022-01-30] MEDS: BACITRACIN 28 GM OINTMENT TP SCH ×2 (10:57→16:32)
[2022-01-30 16:03] VITALS: BP 126/76
[2022-01-30] MEDS: QUEtiapine FUMARATE 200 MG TABLET PO SCH (20:31)
[2022-01-30] MEDS: CETIRIZINE HCL 10 MG TABLET PO SCH (20:31)
[2022-01-30] MEDS: MIRTAZAPINE 15 MG TABLET PO SCH (20:31)
[2022-01-31] MEDS: LEVOTHYROXINE SODIUM 100 MCG TABLET PO SCH (06:07)
[2022-01-31 08:24] VITALS: BP 151/76
[2022-01-31] MEDS: HYDROCORTISONE 2.5% 30 GM CREAM TP SCH (09:00)
[2022-01-31] MEDS: BACITRACIN 28 GM OINTMENT TP SCH ×2 (09:00→16:41)
[2022-01-31] MEDS: METOPROLOL TARTRATE 50 MG TABLET PO SCH ×2 (09:22→16:39)
[2022-01-31] MEDS: LamoTRIgine 100 MG TABLET PO SCH ×2 (09:22→16:39)
[2022-01-31] MEDS: VENLAFAXINE HCL 75 MG ER CAPSULE PO SCH (09:23)
[2022-01-31] MEDS: FAMOTIDINE 20 MG TABLET PO SCH ×2 (09:23→16:40)
[2022-01-31] MEDS: QUEtiapine FUMARATE 25 MG TABLET PO SCH ×2 (09:23→16:39)
[2022-01-31] MEDS: MetroNIDAZOLE 500 MG TABLET PO SCH ×4 (09:23→23:59)
[2022-01-31 16:28] VITALS: BP 154/84
[2022-01-31] MEDS: MIRTAZAPINE 15 MG TABLET PO SCH (21:18)
[2022-01-31] MEDS: CETIRIZINE HCL 10 MG TABLET PO SCH (21:19)
[2022-01-31] MEDS: QUEtiapine FUMARATE 200 MG TABLET PO SCH (21:19)
[2022-02-01 06:05] VITALS: BP 127/71
[2022-02-01] MEDS: LEVOTHYROXINE SODIUM 100 MCG TABLET PO SCH (06:51)
[2022-02-01] MEDS: MetroNIDAZOLE 500 MG TABLET PO SCH ×2 (08:00→16:00)
[2022-02-01] MEDS: METOPROLOL TARTRATE 50 MG TABLET PO SCH ×3 (09:00→17:00)
[2022-02-01] MEDS: FAMOTIDINE 20 MG TABLET PO SCH ×3 (09:00→17:00)
[2022-02-01] MEDS: LamoTRIgine 100 MG TABLET PO SCH ×3 (09:00→17:00)
[2022-02-01 09:14] VITALS: BP 141/78
[2022-02-01] MEDS: QUEtiapine FUMARATE 25 MG TABLET PO SCH ×2 (12:58→17:00)
[2022-02-01] MEDS: BACITRACIN 28 GM OINTMENT TP SCH ×2 (13:04→17:00)
[2022-02-01] MEDS: HYDROCORTISONE 2.5% 30 GM CREAM TP SCH (13:04)
[2022-02-01] MEDS: VENLAFAXINE HCL 75 MG ER CAPSULE PO SCH (14:46)
[2022-02-01 16:00] VITALS: BP 105/67
[2022-02-01] MEDS: CETIRIZINE HCL 10 MG TABLET PO SCH (21:00)
[2022-02-01] MEDS: MIRTAZAPINE 15 MG TABLET PO SCH (21:00)
[2022-02-01] MEDS: QUEtiapine FUMARATE 200 MG TABLET PO SCH (21:00)
[2022-02-02] MEDS: LEVOTHYROXINE SODIUM 100 MCG TABLET PO SCH (06:19)
[2022-02-02] MEDS: MetroNIDAZOLE 500 MG TABLET PO SCH ×3 (08:00→16:28)
[2022-02-02 08:09] VITALS: BP 156/78
[2022-02-02] MEDS: LamoTRIgine 100 MG TABLET PO SCH ×3 (09:00→17:00)
[2022-02-02] MEDS: METOPROLOL TARTRATE 50 MG TABLET PO SCH ×3 (09:00→17:00)
[2022-02-02] MEDS: VENLAFAXINE HCL 75 MG ER CAPSULE PO SCH (09:00)
[2022-02-02] MEDS: FAMOTIDINE 20 MG TABLET PO SCH ×3 (10:17→17:00)
[2022-02-02] MEDS: HYDROCORTISONE 2.5% 30 GM CREAM TP SCH (10:18)
[2022-02-02] MEDS: QUEtiapine FUMARATE 25 MG TABLET PO SCH ×3 (10:18→17:00)
[2022-02-02] MEDS: BACITRACIN 28 GM OINTMENT TP SCH ×2 (10:18→16:30)
[2022-02-02 14:00] VITALS: BP 150/80
[2022-02-02 16:00] VITALS: BP 150/81
[2022-02-02] MEDS: CETIRIZINE HCL 10 MG TABLET PO SCH (21:00)
[2022-02-02] MEDS: QUEtiapine FUMARATE 200 MG TABLET PO SCH (21:00)
[2022-02-02] MEDS: MIRTAZAPINE 15 MG TABLET PO SCH (21:00)
[2022-02-03] MEDS: LEVOTHYROXINE SODIUM 100 MCG TABLET PO SCH (07:04)
[2022-02-03] MEDS: MetroNIDAZOLE 500 MG TABLET PO SCH ×3 (08:00→16:00)
[2022-02-03] MEDS: FAMOTIDINE 20 MG TABLET PO SCH ×2 (09:00→16:46)
[2022-02-03] MEDS: VENLAFAXINE HCL 75 MG ER CAPSULE PO SCH (09:00)
[2022-02-03] MEDS: LamoTRIgine 100 MG TABLET PO SCH ×2 (09:00→16:45)
[2022-02-03] MEDS: METOPROLOL TARTRATE 50 MG TABLET PO SCH ×2 (09:00→16:46)
[2022-02-03] MEDS: QUEtiapine FUMARATE 25 MG TABLET PO SCH ×2 (09:00→16:37)
[2022-02-03] MEDS: HYDROCORTISONE 2.5% 30 GM CREAM TP SCH (10:31)
[2022-02-03] MEDS: BACITRACIN 28 GM OINTMENT TP SCH ×2 (10:31→16:46)
[2022-02-03 16:00] VITALS: BP 140/75
[2022-02-03 16:37] VITALS: BP 140/75
[2022-02-03] MEDS: QUEtiapine FUMARATE 200 MG TABLET PO SCH (21:00)
[2022-02-03] MEDS: CETIRIZINE HCL 10 MG TABLET PO SCH (21:00)
[2022-02-03] MEDS: MIRTAZAPINE 15 MG TABLET PO SCH (21:00)
[2022-02-04] MEDS: LEVOTHYROXINE SODIUM 100 MCG TABLET PO SCH (06:29)
[2022-02-04 08:00] VITALS: BP 136/73
[2022-02-04] MEDS: MetroNIDAZOLE 500 MG TABLET PO SCH ×4 (08:00→16:00)
[2022-02-04] MEDS: FAMOTIDINE 20 MG TABLET PO SCH ×3 (08:56→17:00)
[2022-02-04] MEDS: VENLAFAXINE HCL 75 MG ER CAPSULE PO SCH ×2 (08:56→09:00)
[2022-02-04] MEDS: METOPROLOL TARTRATE 50 MG TABLET PO SCH ×3 (08:56→17:00)
[2022-02-04] MEDS: LamoTRIgine 100 MG TABLET PO SCH ×3 (08:57→17:00)
[2022-02-04] MEDS: BACITRACIN 28 GM OINTMENT TP SCH ×2 (08:57→17:00)
[2022-02-04] MEDS: HYDROCORTISONE 2.5% 30 GM CREAM TP SCH (08:57)
[2022-02-04] MEDS: QUEtiapine FUMARATE 25 MG TABLET PO SCH ×3 (08:57→17:00)
[2022-02-04 16:00] VITALS: BP 163/91
[2022-02-04] MEDS: MIRTAZAPINE 15 MG TABLET PO SCH (21:00)
[2022-02-04] MEDS: QUEtiapine FUMARATE 200 MG TABLET PO SCH (21:00)
[2022-02-04] MEDS: CETIRIZINE HCL 10 MG TABLET PO SCH (21:00)
[2022-02-05] MEDS: LEVOTHYROXINE SODIUM 100 MCG TABLET PO SCH (06:14)
[2022-02-05] MEDS: MetroNIDAZOLE 500 MG TABLET PO SCH ×5 (08:00→23:55)
[2022-02-05] MEDS: METOPROLOL TARTRATE 50 MG TABLET PO SCH ×3 (09:00→17:00)
[2022-02-05] MEDS: FAMOTIDINE 20 MG TABLET PO SCH ×3 (09:00→17:00)
[2022-02-05] MEDS: BACITRACIN 28 GM OINTMENT TP SCH ×3 (09:00→17:36)
[2022-02-05] MEDS: QUEtiapine FUMARATE 25 MG TABLET PO SCH ×3 (09:00→17:35)
[2022-02-05] MEDS: LamoTRIgine 100 MG TABLET PO SCH ×3 (09:00→17:00)
[2022-02-05 10:01] VITALS: BP 158/84
[2022-02-05] MEDS: VENLAFAXINE HCL 75 MG ER CAPSULE PO SCH (10:25)
[2022-02-05] MEDS: HYDROCORTISONE 2.5% 30 GM CREAM TP SCH (10:27)
[2022-02-05 16:01] VITALS: BP 164/84
[2022-02-05] MEDS: CETIRIZINE HCL 10 MG TABLET PO SCH (20:03)
[2022-02-05] MEDS: MIRTAZAPINE 15 MG TABLET PO SCH (20:03)
[2022-02-05] MEDS: QUEtiapine FUMARATE 200 MG TABLET PO SCH (21:00)
[2022-02-06] MEDS: LEVOTHYROXINE SODIUM 100 MCG TABLET PO SCH (06:28)
[2022-02-06 07:08] LABS: COVID AG,FIA SOURCE NASAL SWAB
[2022-02-06] MEDS: MetroNIDAZOLE 500 MG TABLET PO SCH ×2 (08:00→16:00)
[2022-02-06 08:30] VITALS: BP 161/91
[2022-02-06] MEDS: HYDROCORTISONE 2.5% 30 GM CREAM TP SCH (09:00)
[2022-02-06] MEDS: FAMOTIDINE 20 MG TABLET PO SCH ×2 (09:00→17:00)
[2022-02-06] MEDS: VENLAFAXINE HCL 75 MG ER CAPSULE PO SCH (09:00)
[2022-02-06] MEDS: LamoTRIgine 100 MG TABLET PO SCH ×2 (09:00→17:00)
[2022-02-06] MEDS: BACITRACIN 28 GM OINTMENT TP SCH ×2 (09:00→17:21)
[2022-02-06] MEDS: METOPROLOL TARTRATE 50 MG TABLET PO SCH ×2 (09:13→17:00)
[2022-02-06] MEDS: QUEtiapine FUMARATE 25 MG TABLET PO SCH ×2 (09:14→17:21)
[2022-02-06] MEDS: MIRTAZAPINE 15 MG TABLET PO SCH (20:38)
[2022-02-06] MEDS: CETIRIZINE HCL 10 MG TABLET PO SCH (20:40)
[2022-02-06] MEDS: QUEtiapine FUMARATE 200 MG TABLET PO SCH (20:40)
[2022-02-07] MEDS: LEVOTHYROXINE SODIUM 100 MCG TABLET PO SCH (06:31)
[2022-02-07] MEDS: MetroNIDAZOLE 500 MG TABLET PO SCH ×4 (08:00→23:36)
[2022-02-07] MEDS: QUEtiapine FUMARATE 25 MG TABLET PO SCH ×3 (09:00→16:53)
[2022-02-07] MEDS: VENLAFAXINE HCL 75 MG ER CAPSULE PO SCH (09:00)
[2022-02-07] MEDS: HYDROCORTISONE 2.5% 30 GM CREAM TP SCH (09:00)
[2022-02-07] MEDS: BACITRACIN 28 GM OINTMENT TP SCH ×2 (09:00→16:49)
[2022-02-07] MEDS: LamoTRIgine 100 MG TABLET PO SCH ×2 (09:00→16:48)
[2022-02-07] MEDS: METOPROLOL TARTRATE 50 MG TABLET PO SCH ×2 (09:00→16:48)
[2022-02-07] MEDS: FAMOTIDINE 20 MG TABLET PO SCH ×2 (09:00→16:48)
[2022-02-07 16:02] VITALS: BP 126/75
[2022-02-07] MEDS: QUEtiapine FUMARATE 200 MG TABLET PO SCH (21:00)
[2022-02-07] MEDS: MIRTAZAPINE 15 MG TABLET PO SCH (21:00)
[2022-02-07] MEDS: CETIRIZINE HCL 10 MG TABLET PO SCH (21:00)
[2022-02-08] MEDS: LEVOTHYROXINE SODIUM 100 MCG TABLET PO SCH (06:38)
[2022-02-08] MEDS: MetroNIDAZOLE 500 MG TABLET PO SCH ×2 (08:00→16:00)
[2022-02-08 08:56] VITALS: BP 162/98
[2022-02-08] MEDS: BACITRACIN 28 GM OINTMENT TP SCH ×2 (09:00→17:00)
[2022-02-08] MEDS: FAMOTIDINE 20 MG TABLET PO SCH ×2 (09:00→17:00)
[2022-02-08] MEDS: VENLAFAXINE HCL 75 MG ER CAPSULE PO SCH (09:00)
[2022-02-08] MEDS: HYDROCORTISONE 2.5% 30 GM CREAM TP SCH (09:00)
[2022-02-08] MEDS: LamoTRIgine 100 MG TABLET PO SCH ×2 (09:00→17:00)
[2022-02-08] MEDS: QUEtiapine FUMARATE 25 MG TABLET PO SCH ×2 (09:13→17:02)
[2022-02-08] MEDS: METOPROLOL TARTRATE 50 MG TABLET PO SCH ×2 (09:13→17:00)
[2022-02-08 16:00] VITALS: BP 132/72
[2022-02-08] MEDS: QUEtiapine FUMARATE 200 MG TABLET PO SCH (21:00)
[2022-02-08] MEDS: CETIRIZINE HCL 10 MG TABLET PO SCH (21:00)
[2022-02-08] MEDS: MIRTAZAPINE 15 MG TABLET PO SCH (21:00)
[2022-02-09] MEDS: LEVOTHYROXINE SODIUM 100 MCG TABLET PO SCH (06:43)
[2022-02-09 08:00] VITALS: BP 132/92
[2022-02-09] MEDS: MetroNIDAZOLE 500 MG TABLET PO SCH ×3 (08:00→16:00)
[2022-02-09] MEDS: LamoTRIgine 100 MG TABLET PO SCH (09:00)
[2022-02-09] MEDS: VENLAFAXINE HCL 75 MG ER CAPSULE PO SCH (09:00)
[2022-02-09] MEDS: METOPROLOL TARTRATE 50 MG TABLET PO SCH (09:00)
[2022-02-09] MEDS: FAMOTIDINE 20 MG TABLET PO SCH (09:00)
[2022-02-09] MEDS: QUEtiapine FUMARATE 25 MG TABLET PO SCH ×2 (10:31→16:23)
[2022-02-09] MEDS: BACITRACIN 28 GM OINTMENT TP SCH (10:32)
[2022-02-09] MEDS: HYDROCORTISONE 2.5% 30 GM CREAM TP SCH (10:32)
[2022-02-09 13:00] VITALS: BP 128/82
[2022-02-09] MEDS: IBUPROFEN 400 MG TABLET PO PRN (13:00)
[2022-02-09] MEDS ORDERED: HYDR28.35 TP (14:54)
[2022-02-09] MEDS ORDERED: MIRT-89 PO (14:54)
[2022-02-09] MEDS ORDERED: QUET25TA PO (14:54)
[2022-02-09] MEDS ORDERED: METR500 PO (14:54)
== END 2022-02-09 17:00 | DRG 885 ==
LOC: EMS 19:09 → 3EX 12-13 21:16
PROVIDERS: ADMIT Psychiatry & Neurology Child & Adolescent Psychiatry; ATTEND Psychiatry & Neurology Child & Adolescent Psychiatry
DX: F25.0 Schizoaffective disorder, bipolar type (principal); G40.909 Epilepsy, unspecified, not intractable, without status epilepticus; H91.90 Unspecified hearing loss, unspecified ear; E03.9 Hypothyroidism, unspecified; K21.9 Gastro-esophageal reflux disease without esophagitis; J45.909 Unspecified asthma, uncomplicated; I10 Essential (primary) hypertension; F41.9 Anxiety disorder, unspecified; Z20.822 Contact with and (suspected) exposure to COVID-19; G47.33 Obstructive sleep apnea (adult) (pediatric); G89.29 Other chronic pain; M54.9 Dorsalgia, unspecified; Z91.81 History of falling; Z79.899 Other long term (current) drug therapy; Z59.00 Homelessness unspecified; Z91.041 Radiographic dye allergy status; Z91.013 Allergy to seafood; Z91.018 Allergy to other foods
CPT/HCPCS: 71046; 80048; 80053; 80178; 81001; 81003; 85025; 87081; 87086; 97162; 99285; G0378; G0480; 36415-L1; 36415-TC

== ENCOUNTER 2022-10-23 18:46 | Emergency (ER) | payer MEDICARE, OTHER ==
[~2022-10-23] VITALS: Ht 165.1 cm; Wt 70.5 kg
[~2022-10-23 18:46] MED LIST changes: -ACET-2247 PO; -AMLO-258 PO; -BENZ1TAB96 PO; -BISA10SU61 PR; -CEPH-558 PO; -CETI5TAB14 PO; -CHOL10002 PO; -DOCU-119 PO; -ENOX40SY14 SQ; -FERR325T27 PO; +HYDR28.35 TP; -LEVE500T9 PO; -LITH300CRT PO; -MAGN-169 PO; +METR500 PO; -MUPI1OIN5 TP; -PANT-31 PO; -POLY17PO47 PO; -THIA100T80 PO
[2022-10-23 21:36] LABS: AMPHET/METH SCREEN,URINE NEGATIVE (NEGATIVE); BARBITURATE SCREEN, URINE NEGATIVE (NEGATIVE); BENZODIAZEPINES SCREEN,URINE NEGATIVE (NEGATIVE); CANNABINOID SCREEN,URINE NEGATIVE (NEGATIVE); COCAINE SCREEN,URINE NEGATIVE (NEGATIVE); METHADONE SCREEN, URINE NEGATIVE (NEGATIVE); OPIATE SCREEN,URINE NEGATIVE (NEGATIVE); PHENCYCLIDINE SCREEN,URINE NEGATIVE (NEGATIVE)
[2022-10-23 23:55] LABS: COVID AG,FIA SOURCE NASOPHARYNGEAL
[2022-10-24] MEDS ORDERED: LORazepam 2 MG TABLET PO PRN (02:45)
[2022-10-24] MEDS ORDERED: HALOPERIDOL 5 MG TABLET PO PRN (02:45)
[2022-10-24] MEDS ORDERED: ZOLPIDEM TARTRATE 10 MG TABLET PO PRN (02:45)
[2022-10-24 05:46] LABS: APPEARANCE,URINE CLEAR (CLEAR); BILIRUBIN,URINE NEGATIVE (NEGATIVE); GLUCOSE, URINE (UA) NEGATIVE (NEGATIVE); KETONES,URINE NEGATIVE (NEGATIVE); LEUKOCYTE ESTERASE ,URINE TRACE (NEGATIVE); NITRATE,URINE NEGATIVE (NEGATIVE); OCCULT BLOOD,URINE NEGATIVE (NEGATIVE); PH,URINE 6.5 (5.0-8.0); PROTEIN,URINE NEGATIVE (NEGATIVE); SPECIFIC GRAVITIY, URINE 1.005 (1.003-1.030); UROBILINOGEN,URINE <=1.0 mg/dL (<=1.0)
[2022-10-24 05:50] LABS: BACTERIA,URINE None Seen /HPF (None Seen); RBC,URINE None Seen /HPF (0-2); SQUAMOUS EPITHELIAL CELL,UR Few /LPF (None Seen); WBC,URINE 0-2 /HPF (0-5)
[2022-10-24 16:03] VITALS: BP 138/110
== END 2022-10-24 15:46 | disposition admitted as inpatient to this hospital (09) ==
LOC: EMS 18:50
DX: F20.0 Paranoid schizophrenia (principal); J45.909 Unspecified asthma, uncomplicated; I10 Essential (primary) hypertension; E03.9 Hypothyroidism, unspecified; F20.9 Schizophrenia, unspecified; G89.29 Other chronic pain; Z98.890 Other specified postprocedural states; Z91.040 Latex allergy status; Z91.018 Allergy to other foods; Z91.013 Allergy to seafood; Z88.8 Allergy status to other drugs, medicaments and biological substances
CPT/HCPCS: 80307; 81001; 87481; 99285